=== PATIENT | male | born 1945 | race Caucasian/White ===

== ENCOUNTER 2017-04-27 21:11 | Inpatient (IN) | payer OTHER, MEDICARE ==
[~2017-04-27] VITALS: Ht 365.8 cm; Wt 85.7 kg
[~2017-04-27 21:11] MED LIST: ADVAIR 250-501 EACH; ALBUTEROL S5 MG/1 ML; ATORVASTATIN CA20 MG PO; COMBIVENT INH14.7 GM; HYDROCHLOROTHIA25 MG PO; PROTONIX40 MG/ML PO; SUCRALFATE1 G/10 ML NG; SYMBICORT INH
--- OUTSIDE RECORDS SUMMARY | 2017-04-27 21:14 | XMS REPORT ---
Author Author [facility] Address Unknown Phone Unavailable Care Team Providers Care Weaving Inspector Name Role Phone WILLIAM FERRARO Unavailable Unavailable Problems This patient has no known problems. Allergies, Adverse Reactions, Alerts This patient has no known allergies or adverse reactions. Medications This patient has no known medications. Results Test Description Test Time Test Comments Text Results Atomic Results Result Comments CT CHEST WO [place] [address] Patient Name: MARY ZAMAN MR #: [id number] : 1945 Age/Sex: 71/M Req #: [id number] Adm Physician: WILLIAM FERRARO MD Ordered by: REUBEN PUGA MD Report #: [id number] Location: ICU Room/Bed: ICU [facility] Procedure: [id number] CT/CT CHEST WO Exam Date: 12/19/16 Exam Time: 0955 REPORT STATUS: Signed EXAM: CT Chest WITHOUT contrast INDICATION: Cough and shortness of breath. COMPARISON: None TECHNIQUE: Chest was scanned utilizing a multidetector helical scanner from the lung apex through the level of the adrenal glands without administration of IV contrast. Absence of intravenous contrast decreases sensitivity for detection of lymphadenopathy and vascular pathology. Coronal and sagittal reformations were obtained. Routine protocol was performed. IV CONTRAST: None COMPLICATIONS: None RADIATION DOSE: Total DLP: 538.8 mGy*cm Estimated effective dose: (DLP x 0.014 x size factor) mSv CTDIvol has been reviewed. It is below the limits set by the Radiation Protocol Committee (RPC). FINDINGS: LINES/ TUBES: None. LUNGS AND AIRWAYS: Upper lobe predominant centrilobular and paraseptal emphysematous changes. No focal consolidation. Right lower lobe calcified granuloma. Nonspecific 2 mm left lower lobe groundglass nodule ( series 3, image 40). Few additional punctate left lower lobe nodules. Bibasilar small areas of linear atelectasis/scarring. Airways are normal. PLEURA: The pleural spaces are clear. Mild bilateral lower lobe, right more on left, pleural thickening/irregularity. HEART AND MEDIASTINUM: The thyroid gland is normal. No mediastinal, hilar or axillary lymphadenopathy. The heart is normal in size.. There is no pericardial effusion. Mild atherosclerotic calcification of coronary arteries. Aorta measures 3.6 cm at the level of right pulmonary artery. UPPER ABDOMEN: Splenic calcified granuloma. BONES: The visualized bony thorax is within normal limits. SOFT TISSUES: Unremarkable. IMPRESSION: 1. No evidence of pneumonia. 2. Centrilobular and paraseptal emphysematous changes. 3. Evidence of prior granulomatous disease. 4. Few tiny nonspecific lung nodules. Without risk factors, no follow-up is necessary. If the patient is high risk, follow-up with low-dose chest CT in one year is recommended. 5. Minimal pleural thickening/irregularity, especially in the lower lobes. Signed by: Dr. Lg Shaffer MD on 12/19/2016 12:10 PM Dictated By: LG SHAFFER MD 1210 Transcribed By: ROSALIND on 12/19/16 1210 COPY TO: REUBEN PUGA MD CHEST SINGLE (PORTABLE) [place] [address] Patient Name: MARY ZAMAN MR #: [id number] : 1945 Age/Sex: 71/M Req #: [id number] Adm Physician: WILLIAM FERRARO MD Ordered by: SARAH SMITH MD Report #: [id number] Location: ICU Room/Bed: ICU [facility] Procedure: [id number] DX/CHEST SINGLE (PORTABLE) Exam Date: Exam Time: REPORT STATUS: Signed EXAMINATION: CHEST SINGLE (PORTABLE) INDICATION: Dyspnea, screening COMPARISON: 05/18/2015 FINDINGS: TUBES and LINES: None. LUNGS: Lungs are well inflated. Right lower lobe lateral aspect airspace opacity. PLEURA: No pleural effusion or pneumothorax. HEART AND MEDIASTINUM: The cardiomediastinal silhouette is unremarkable. BONES AND SOFT TISSUES: No acute osseous lesion. Soft tissues are unremarkable. UPPER ABDOMEN: No free air under the diaphragm. IMPRESSION: Findings in the lateral right lung base are suspicious for developing pneumonia. Signed by: Dr. Onesimo Alcantara M.D. on 12/19/2016 5 :35 AM Dictated By: ONESIMO MAS MD 4 Transcribed By: ROSALIND on 12/19/16534 COPY TO: SARAH SMITH MD ECHO COMPLETE (ECHOCARDIOGRAM) [place] [address] Patient Name : MARY ZAMAN MR #: [id number] : 1945 Age/Sex: 71/M Adm Physician : WILLIAM FERRARO MD Admit Date : 12/17/16 Location : MED/SURG2 Room/Bed : [facility] REPORT: Cardiology Report DATE OF STUDY: December 17, 2016 ECHOCARDIOGRAM M-MODE: Normal chamber sizes. Left ventricular hypertrophy. Borderline left ventricular contractility. Normal mitral and aortic valves. No pericardial effusion. SECTOR SCAN: Suboptimal study with poor image quality. Normal chamber sizes. Left ventricular hypertrophy. Borderline contractility. Slight paradoxical wall motion. Ejection fraction 45% to 50%. Mitral, aortic and tricuspid valves are grossly normal. There is no pericardial effusion. CARDIAC DOPPLER STUDY WITH COLOR: No significant regurgitation or stenosis. CONCLUSIONS 1. Suboptimal study with poor image quality. 2. Left ventricular hypertrophy with ejection fraction in the range of 45% to 50%. 3. No significant tricuspid regurgitation to estimate pulmonary artery systolic pressure. 10: 43 Job#: [id number] Signature Date Dictated By: WILLIAM FERRARO MD Transcribed By: SMEDS on 12/18/16 <Electronically signed by WILLIAM FERRARO MD><<Signature on File>>12/26/16 1015 COPY TO: CHEST 2 VIEWS [place] [address] Patient Name: MARY ZAMAN MR #: [id number] : 1945 Age/Sex: 71/M Req #: [id number] Adm Physician: Ordered by: DIMAS BIRMINGHAM MD Report #: [id number] Location: ER Room/Bed: Procedure: [id number] DX/CHEST 2 VIEWS Exam Date: 12/17/16 Exam Time: 1309 REPORT STATUS: Signed PROCEDURE: Frontal and lateral views of the chest. COMPARISON: None. INDICATIONS: THROWING UP/SHORTNESS OF BREATH FINDINGS: Lines/tubes: None. Lungs: Bilateral hyperinflation. The There is no evidence of pneumonia or pulmonary edema. Pleura: There is no pleural effusion or pneumothorax. Heart and mediastinum: The heart and the mediastinum are normal. Bones: No acute bony abnormality. Mild wedging of midthoracic vertebral bodies. IMPRESSION: 1. Bilateral hyperinflation suggestive of COPD. Meg Luna M.D. Dictated by: Meg Luna M.D. on 12/17 at 13:53 Electronically approved by: Meg Luna M.D. on 12/17/2016 at 13:53 Dictated By: ALESSIO LUNA MD, MD 1353 Transcribed By : CATERINA on 12/17/16 1353 COPY TO: DIMAS BIRMINGHAM MD CT ABDOMEN/PELVIS W [place] [address] Patient Name: MARY ZAMAN MR #: [id number] : 1945 Age/Sex: 71/M Req # : [id number] Adm Physician: Ordered by: KORIN GUERRA DIRECTOR COLLEGE Report #: [id number] Location: ER Room/Bed: Procedure: [id number] CT/CT ABDOMEN/PELVIS W Exam Date: 12/17/16 Exam Time: 1309 REPORT STATUS: Signed EXAM: CT Abdomen and Pelvis WITH contrast INDICATION: Abdominal pain. Leukocytosis. Melena. COMPARISON: None. TECHNIQUE: Abdomen and pelvis were scanned utilizing a multidetector helical scanner from the lung base to the pubic symphysis after administration of IV contrast. Coronal and sagittal reformations were obtained. Routine protocol was performed. Scan was performed when during portal venous phase. IV CONTRAST: 100 cc Isovue-370. ORAL CONTRAST: 30 cc of Gastrografin diluted in 870 cc of water. RADIATION DOSE: Total DLP: 436.78 mGy*cm Estimated effective dose: (DLP x 0.015 x size factor) mSv COMPLICATIONS: None FINDINGS: LINES and TUBES: None. LOWER THORAX: Mild bibasilar dependent atelectasis. HEPATOBILIARY: No focal hepatic lesions. No biliary ductal dilation. GALLBLADDER: High attenuation material within the dependent gallbladder suggestive of calculi. No wall thickening. SPLEEN: No splenomegaly. PANCREAS: No focal masses or ductal dilatation. ADRENALS: No adrenal nodules KIDNEYS/URETERS: Kidneys enhance symmetrically. No hydronephrosis. 1.6 cm cyst partially exophytic of the lower pole of the left kidney on image 40 series 2. 4 mm low-attenuation lesion in the anterior cortex of the lower interpolar region of the right kidney on image 26 series 2 small to be characterized, however, most likely benign in etiology. 2 subcentimeter low-attenuation lesions in the interpolar region and upper pole of the left kidney on coronal image 71 are too small to be characterized, however, most likely cysts. No stones. GI TRACT: No abnormal distention, wall thickening, or evidence of bowel obstruction. Appendix is normal. Scattered colonic diverticula without CT evidence of diverticulitis. There is made of relatively haustral transverse and descending colon. PELVIC ORGANS/BLADDER: Unremarkable. LYMPH NODES: No lymphadenopathy. VESSELS: Tortuous abdominal aorta with atherosclerotic changes and mild focal ectasia just distal to the origin of the TAD, measuring 2.8 cm in transverse dimension on image 37 series 2. PERITONEUM / RETROPERITONEUM: No free air or fluid. BONES: Status post laminectomy and posterior fusion of L4-L5 with transpedicular screws system. Multilevel degenerative disc disease and spondylosis of the lumbar, and the lower thoracic spine. SOFT TISSUES: Unremarkable. IMPRESSION: 1. No acute abdominopelvic abnormality. 2. Sigmoid diverticulosis without acute diverticulitis. 3. Cholelithiasis. No biliary dilatation. Signed by: Dr. Meg Luna M.D. on 12/17/2016 2:39 PM Dictated By: ALESSIO LUNA MD, MD 1439 COPY TO: KORIN GUERRA NP
--- NOTE | 2017-04-27 22:29 | Diagnostic Imaging Report ---
EXAM: CHEST SINGLE (PORTABLE), AP 1 view ORDER DATE: 04/27/2017 9:46 PM Time stamp on exam: 2152 hours INDICATION: Chest pain, shortness of breath COMPARISON: None FINDINGS: LINES/TUBES: None LUNGS: No consolidations or edema. Calcified granuloma right lower lobe. Emphysematous changes. PLEURA: No effusions or pneumothorax. HEART AND MEDIASTINUM: Normal size and contour. BONES AND SOFT TISSUES: No acute findings. Ligamentous screws right humeral head. IMPRESSION: Emphysematous changes. No consolidations. Signed by: Dr. Cassidy Gonsalez M.D. on 04/27/2017 10:26 PM
[2017-04-27 23:03] LABS: BASOPHILS # (AUTO) 0.1 (0.0-0.1); BASOPHILS % 0.6 % (0.0-1.0); EOSINOPHILS # (AUTO) 0.3 (0.0-0.4); EOSINOPHILS % 2.8 % (0.0-6.0); HEMATOCRIT 39.7 % (38.2-49.6); LYMPHOCYTES # (AUTO) 1.2 (1.0-3.2); LYMPHOCYTES % 12.1 % (18.0-39.1); MEAN CORPUSCULAR HEMOGLOBIN 27.3 pg (28-32); MEAN CORPUSCULAR HGB CONC 32.7 g/dL (31-35); MEAN CORPUSCULAR VOLUME 83.4 fL (81-99); MONOCYTES # (AUTO) 1.3 (0.2-0.8); MONOCYTES % 13.8 % (4.4-11.3); NEUTROPHILS # (AUTO) 6.6 (2.1-6.9); NEUTROPHILS % 69.4 % (38.7-80.0); PLATELET COUNT 297 x10e3/uL (140-360); RED BLOOD COUNT 4.76 x10e6/uL (4.3-5.7); RED CELL DISTRIBUTION WIDTH 18.2 % (11.7-14.4)
[2017-04-27 23:15] LABS: INR 1.03; PARTIAL THROMBOPLASTIN TIME 28.9 seconds (23.8-35.5); PROTHROMBIN TIME 12.7 seconds (11.9-14.5)
[2017-04-27 23:24] LABS: ALANINE AMINOTRANSFERASE 13 IU/L (0-55); ALBUMIN 3.4 g/dL (3.5-5.0); ALBUMIN/GLOBULIN RATIO 0.9 (0.8-2.0); ALKALINE PHOSPHATASE 84 IU/L (40-150); ANION GAP 13.7 mmol/L (8-16); BLOOD UREA NITROGEN 22 mg/dL (7-26); BUN/CREATININE RATIO 22 (6-25); CALCIUM 9.5 mg/dL (8.4-10.2); CARBON DIOXIDE 28 mmol/L (22-29); CHLORIDE 104 mmol/L (98-107); CREATINE KINASE 177 IU/L (30-200); CREATININE, SERUM 1.02 mg/dL (0.72-1.25); EST GLOMERULAR FILTRATION RATE > 60 ML/MIN (60-); GLUCOSE 110 mg/dL (74-118); POTASSIUM 3.7 mmol/L (3.5-5.1); SODIUM 142 mmol/L (136-145)
[2017-04-27] MEDS ORDERED: NITROGLYCERIN 2% OINT 1 GM PKT TOP ONE (23:45)
[2017-04-27] MEDS ORDERED: ASPIRIN 81 MG CHEW TAB PO ONE (23:45)
[2017-04-28] VITALS (10 sets, daily range): BP systolic 102–130; BP diastolic 48–87
[2017-04-28] MEDS ORDERED: CLOPIDOGREL BISULFATE 75 MG TAB PO ONE
[2017-04-28] MEDS: NITROGLYCERIN 2% OINT 1 GM PKT TOP SCH ×4 (00:24→17:42)
[2017-04-28] MEDS: ALBUTEROL/IPRATROPIUM 3 ML NEB NEB PRN ×2 (02:45→07:38)
[2017-04-28 06:22] LABS: BASOPHILS # (AUTO) 0.1 (0.0-0.1); BASOPHILS % 0.6 % (0.0-1.0); EOSINOPHILS # (AUTO) 0.3 (0.0-0.4); EOSINOPHILS % 3.8 % (0.0-6.0); HEMATOCRIT 35.8 % (38.2-49.6); LYMPHOCYTES # (AUTO) 1.1 (1.0-3.2); MEAN CORPUSCULAR HEMOGLOBIN 27.7 pg (28-32); MEAN CORPUSCULAR HGB CONC 33.5 g/dL (31-35); MEAN CORPUSCULAR VOLUME 82.7 fL (81-99); MONOCYTES # (AUTO) 1.1 (0.2-0.8); MONOCYTES % 13.6 % (4.4-11.3); NEUTROPHILS # (AUTO) 5.2 (2.1-6.9); NEUTROPHILS % 66.7 % (38.7-80.0); PLATELET COUNT 270 x10e3/uL (140-360); RED BLOOD COUNT 4.33 x10e6/uL (4.3-5.7); RED CELL DISTRIBUTION WIDTH 17.9 % (11.7-14.4)
[2017-04-28 06:44] LABS: ALANINE AMINOTRANSFERASE 15 IU/L (0-55); ALBUMIN 3.1 g/dL (3.5-5.0); ALKALINE PHOSPHATASE 81 IU/L (40-150); ANION GAP 13.3 mmol/L (8-16); BLOOD UREA NITROGEN 19 mg/dL (7-26); BUN/CREATININE RATIO 23 (6-25); CALCIUM 9.1 mg/dL (8.4-10.2); CARBON DIOXIDE 27 mmol/L (22-29); CHLORIDE 105 mmol/L (98-107); CHOL/HDL RATIO 4.1 (3.9-4.7); CHOLESTEROL 140 MD/DL (0-199); CREATINE KINASE 365 IU/L (30-200); CREATININE, SERUM 0.82 mg/dL (0.72-1.25); EST GLOMERULAR FILTRATION RATE > 60 ML/MIN (60-); GLUCOSE 106 mg/dL (74-118); HDL CHOLESTEROL 34 MG/DL (40-60); LDL CHOLESTEROL 86 MG/DL (60-130); POTASSIUM 3.3 mmol/L (3.5-5.1); SODIUM 142 mmol/L (136-145); TRIGLYCERIDES 100 MG/DL (0-149)
[2017-04-28] MEDS ORDERED: LIDOCAINE HCL 2% LOCAL 20 ML VIAL PRN (08:52)
[2017-04-28] MEDS ORDERED: HEPARIN SOD/SOD CHLORIDE 2,000 ML PRN (08:53)
[2017-04-28] MEDS ORDERED: IOPAMIDOL 370 MG/ML 200 ML INFUS..BTL INJ PRN (08:53)
[2017-04-28] MEDS ORDERED: FENTANYL CITRATE/PF 100MCG/2 ML INJ PRN (08:55)
[2017-04-28] MEDS ORDERED: MIDAZOLAM HCL 2 MG/2 ML VIAL PRN (08:55)
[2017-04-28] MEDS ORDERED: CLOPIDOGREL BISULFATE 75 MG TAB PO SCH (09:00)
[2017-04-28] MEDS ORDERED: ASPIRIN 81 MG ENTERIC COATED PO SCH (09:00)
[2017-04-28] MEDS ORDERED: POTASSIUM CHLORIDE 20 MEQ TAB CR PO NR (09:30)
[2017-04-28] MEDS ORDERED: SODIUM CHLORIDE 0.9% 1000ML 1,000 ML PRN (09:56)
[2017-04-28] MEDS ORDERED: BIVALIRUDIN 250 MG/VIAL IV PRN (09:58)
[2017-04-28] MEDS ORDERED: SODIUM CHLORIDE 0.9% 50ML 50 ML PRN (09:59)
[2017-04-28] MEDS ORDERED: EPTIFIBATIDE 10 ML PRN (10:25)
[2017-04-28] MEDS ORDERED: CLOPIDOGREL BISULFATE 75 MG TAB PRN (10:31)
[2017-04-28] MEDS ORDERED: ASPIRIN 325 MG TAB PRN (10:31)
[2017-04-28] MEDS: FAMOTIDINE 20 MG TAB PO SCH ×3 (12:00→17:30)
[2017-04-28] MEDS ORDERED: METHYLPREDNISOLONE SOD SUCC 40 MG/ML VIAL IV ONE (14:45)
[2017-04-28 15:06] LABS: CREATINE KINASE MB 18.1 ng/mL (0-5.0)
--- NOTE | 2017-04-28 15:47 | Consultation ---
DATE OF CONSULTATION: April 28, 2017 PULMONARY/CRITICAL CARE CONSULTATION CHIEF COMPLAINT: COPD and recent myocardial infarction. HISTORY OF PRESENT ILLNESS: The patient is a 71-year-old man. He has a history of severe COPD. He uses Symbicort as well as Combivent at home. He was at his baseline up until 2 or 3 days ago when he developed chest pain. He came to the emergency department and was found to have acute CA. He required emergent catheterization with stent placement. He reports improvement in his chest pain and symptoms, but still has some dyspnea. PAST MEDICAL HISTORY: COPD, osteoarthritis, hyperlipidemia. PAST SURGICAL HISTORY: Status post catheterization with stent placement as noted above. History of chronic back problems. ALLERGIES: THERE ARE NO KNOWN DRUG ALLERGIES. SOCIAL HISTORY: The patient quit smoking. 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 FAMILY HISTORY: Noncontributory. ALLERGIES: NO KNOWN DRUG ALLERGIES. REVIEW OF SYSTEMS: The patient denies any fever or headache. He is not complaining of facial pain. He has no neck pain. He did have chest pain when he came in, but it has improved. He does have some dyspnea. There is no cough. He has no abdominal pain. There is no nausea or vomiting. There is no leg edema. PHYSICAL EXAMINATION: VITAL SIGNS: The patient is afebrile. The patient is 98% on 3 liters. The blood pressure is 109/69. HEENT: Examination shows no facial swelling or erythema. Nasal mucosa is normal. The oropharynx is normal. LYMPHATIC: Examination shows no submandibular, cervical or supraclavicular adenopathy. CARDIAC: Exam reveals a regular rate and rhythm with normal S1 and S2. There are no murmurs or rubs. LUNGS: Auscultation of the lungs reveals prolonged expiratory phase. There is no wheezing. ABDOMEN: Is soft and nontender. There is no rebound or guarding. EXTREMITIES: Shows no leg edema or calf tenderness. There is no cyanosis or clubbing. NEUROLOGIC: Exam shows no focal abnormalities. SKIN: Examination shows no rashes. LABORATORY DATA: The chemistries are significant for elevated troponin 4.9. The electrolytes are within normal limits. RADIOGRAPHIC DATA: The chest x-ray shows some emphysematous changes. There are no acute changes. IMPRESSION 1. Chronic obstructive pulmonary disease with acute exacerbation. 2. Acute myocardial infarction requiring stent placement. PLAN: 1. The patient will receive 1 dose of IV Solu-Medrol. 2. Will restart the Symbicort twice a day. 3. Patient will have nebulizer treatments as needed. 4. Continue cardiac management as per cardiology. Job#: [id number] GH
[2017-04-28] MEDS ORDERED: ONDANSETRON HCL INJ 2 MG/ML VIAL IV PRN ×2 (17:30)
[2017-04-28] MEDS ORDERED: SODIUM CHLORIDE FLUSH 10 ML SYR INJ PRN ×2 (17:30)
[2017-04-28] MEDS ORDERED: ALBUTEROL/IPRATROPIUM 3 ML NEB NEB PRN (17:30)
[2017-04-28] MEDS ORDERED: MORPHINE SULFATE 2 MG/ML SYR IV PRN ×2 (17:30)
--- NOTE | 2017-04-28 17:31 | Operative Report ---
DATE OF PROCEDURE: April 28, 2017 PROCEDURES PERFORMED: 1. Left heart catheterization. 2. Selective coronary angiogram. 3. Left ventriculogram. 4. Stent placement in the left anterior descending. INDICATIONS: [id number] NV. ANESTHESIA: 2% lidocaine for local anesthesia and fentanyl and Versed for conscious sedation. BLOOD LOSS: About 15 mL. DESCRIPTION OF PROCEDURE: After informed consent, patient was brought to the cardiac catheterization laboratory and placed on the table. Both groins were painted and draped in a sterile fashion. Lidocaine was injected into the right groin for local anesthesia. Right femoral artery was accessed by Seldinger technique, and a 5-Turkish sheath was placed in the right femoral artery. Left main artery was cannulated using a JL4, 5-Turkish catheter. Coronary angiogram was performed, and images were obtained in multiple views. The right coronary artery was cannulated using a 3DRC 5-Turkish catheter. Coronary angiogram was performed, and images were obtained in multiple views. LV-gram was performed using a pigtail catheter. After reviewing the images, it was decided to intervene on the 70% to 80% mid LAD lesion. The 5-Turkish sheath was exchanged for a 6-Turkish sheath over a guidewire. The left main was cannulated using an XB 3.5, 6-Turkish guide. A Prowater wire was manipulated and placed in the distal LAD. The lesion was dilated using a 2.5 x 8 mm Emerge balloon. The balloon was removed. The wire was sticky. So, the wire was removed, and a Hi-Torque floppy wire was manipulated and placed in the distal LAD. A 2.75 x 16 mm Synergy drug-eluting stent was advanced over the wire, and the lesion was dilated at 8 atmospheres for about 15 seconds. All this was performed under constant fluoroscopic guidance. Patient was given aspirin, Plavix, Angiomax and Integrilin bolus during the procedure. Patient tolerated this procedure without any complications. REPORT: LEFT MAIN: Normal caliber and has no significant stenosis. LEFT ANTERIOR DESCENDING: Is of normal caliber and had 70% to 80% mid lesion. There appears to be like a dual LAD system with a large ramus/diagonal branch running parallel to the LAD. LEFT CIRCUMFLEX: Normal caliber with luminal irregularities. RIGHT CORONARY ARTERY: Normal caliber with luminal irregularities. LV-GRAM: Preserved LV function. Overall ejection fraction is about 50%. HEMODYNAMICS: The aortic pressure is 120/50. LV pressure is 121/7. LVEDP is 13. BALLOON USED: A 2.5 x 8 mm Emerge. STENT USED: A 2.75 x 16 mm Synergy drug-eluting stent in the mid LAD. There was 0% residual stenosis. Job#: [id number] EV
[2017-04-28] MEDS ORDERED: BUDESONIDE/FORMOTEROL 160/4.5MCG INHALER INH SCH (19:00)
[2017-04-28] MEDS: BUDESONIDE/FORMOTEROL 160/4.5MCG INHALER INH SCH (21:00)
[2017-04-28 23:00] LABS: CREATINE KINASE MB 13.2 ng/mL (0-5.0)
[2017-04-29] VITALS (15 sets, daily range): BP systolic 86–134; BP diastolic 49–78
[2017-04-29] MEDS: NITROGLYCERIN 2% OINT 1 GM PKT TOP SCH ×4 (05:58→18:00)
[2017-04-29 06:08] LABS: BASOPHILS % 0.1 % (0.0-1.0); HEMATOCRIT 35.6 % (38.2-49.6); LYMPHOCYTES # (AUTO) 0.4 (1.0-3.2); LYMPHOCYTES % 4.8 % (18.0-39.1); MEAN CORPUSCULAR HEMOGLOBIN 27.5 pg (28-32); MEAN CORPUSCULAR HGB CONC 33.7 g/dL (31-35); MEAN CORPUSCULAR VOLUME 81.5 fL (81-99); MONOCYTES # (AUTO) 0.3 (0.2-0.8); MONOCYTES % 3.5 % (4.4-11.3); NEUTROPHILS # (AUTO) 7.9 (2.1-6.9); NEUTROPHILS % 90.9 % (38.7-80.0); PLATELET COUNT 267 x10e3/uL (140-360); RED BLOOD COUNT 4.37 x10e6/uL (4.3-5.7)
[2017-04-29 06:20] LABS: INR 1.21; PROTHROMBIN TIME 14.4 seconds (11.9-14.5)
[2017-04-29 06:28] LABS: ALANINE AMINOTRANSFERASE 17 IU/L (0-55); ALBUMIN/GLOBULIN RATIO 0.9 (0.8-2.0); ALKALINE PHOSPHATASE 78 IU/L (40-150); ANION GAP 13.8 mmol/L (8-16); BLOOD UREA NITROGEN 15 mg/dL (7-26); BUN/CREATININE RATIO 20 (6-25); CALCIUM 8.9 mg/dL (8.4-10.2); CARBON DIOXIDE 25 mmol/L (22-29); CHLORIDE 106 mmol/L (98-107); CREATININE, SERUM 0.75 mg/dL (0.72-1.25); EST GLOMERULAR FILTRATION RATE > 60 ML/MIN (60-); GLUCOSE 148 mg/dL (74-118); MAGNESIUM 1.8 MG/DL (1.3-2.1); POTASSIUM 3.8 mmol/L (3.5-5.1); SODIUM 141 mmol/L (136-145)
[2017-04-29] MEDS: FAMOTIDINE 20 MG TAB PO SCH ×2 (06:52→18:00)
[2017-04-29] MEDS: BUDESONIDE/FORMOTEROL 160/4.5MCG INHALER INH SCH ×2 (07:00→20:15)
[2017-04-29 07:53] LABS: PLATELET ESTIMATE ADEQUATE; PLATELET MORPHOLOGY COMMENT NORMAL; RBC MORPHOLOGY COMMENT NORMAL
[2017-04-29] MEDS: CLOPIDOGREL BISULFATE 75 MG TAB PO SCH (09:11)
[2017-04-29] MEDS: ASPIRIN 81 MG ENTERIC COATED PO SCH (09:11)
[2017-04-30] MEDS: NITROGLYCERIN 2% OINT 1 GM PKT TOP SCH ×3 (00:10→12:42)
[2017-04-30 05:16] VITALS: BP 93/56
[2017-04-30] MEDS: FAMOTIDINE 20 MG TAB PO SCH (06:10)
[2017-04-30 06:20] VITALS: BP 98/60
[2017-04-30 07:29] VITALS: BP 107/60
[2017-04-30 08:00] VITALS: BP 107/60
[2017-04-30] MEDS: ASPIRIN 81 MG ENTERIC COATED PO SCH (09:34)
[2017-04-30] MEDS: CLOPIDOGREL BISULFATE 75 MG TAB PO SCH (09:34)
[2017-04-30 11:18] VITALS: BP 117/76
[2017-04-30] MEDS ORDERED: PLAVIX75 MG PO (13:50)
== END 2017-04-30 14:24 | disposition home health service (06) | DRG 247 ==
LOC: ER 21:11 → ERHOLD 04-28 00:29 → UNDOADMIN 04-28 00:29 → ER 04-28 09:05 → CATH LAB 04-28 12:56 → IMCU 04-28 13:57
PROVIDERS: ADMIT Internal Medicine Critical Care Medicine; ATTEND Internal Medicine Critical Care Medicine
PROC: 027034Z Dilation of Coronary Artery, One Artery with Drug-eluting Intraluminal Device, Percutaneous Approach (ICD-10-PCS; principal; 2017-04-28)
PROC: 3E033PZ Introduction of Platelet Inhibitor into Peripheral Vein, Percutaneous Approach (ICD-10-PCS; 2017-04-28)
PROC: 4A023N7 Measurement of Cardiac Sampling and Pressure, Left Heart, Percutaneous Approach (ICD-10-PCS; 2017-04-28)
PROC: B2111ZZ Fluoroscopy of Multiple Coronary Arteries using Low Osmolar Contrast (ICD-10-PCS; 2017-04-28)
PROC: B2151ZZ Fluoroscopy of Left Heart using Low Osmolar Contrast (ICD-10-PCS; 2017-04-28)
DX: I21.4 Non-ST elevation (NSTEMI) myocardial infarction (principal); J44.1 Chronic obstructive pulmonary disease with (acute) exacerbation; K21.9 Gastro-esophageal reflux disease without esophagitis; I25.10 Atherosclerotic heart disease of native coronary artery without angina pectoris; E78.5 Hyperlipidemia, unspecified; E87.6 Hypokalemia; M19.90 Unspecified osteoarthritis, unspecified site; Z87.891 Personal history of nicotine dependence; Z79.02 Long term (current) use of antithrombotics/antiplatelets
CPT/HCPCS: 36140; 36415; 71045; 77002; 80053; 80061; 82550; 82553; 83735; 84484; 85025; 85610; 85730; 92920; 93005; 93306; 93452; 93458; 94640; 99284; C9600; J0583; J1327; J2001; J2250; J2270; J2405; J2920; J7030; Q9967

== ENCOUNTER 2017-05-29 01:52 | Emergency (ER) | payer OTHER, MEDICARE ==
[~2017-05-29] VITALS: Ht 365.8 cm; Wt 85.7 kg
[~2017-05-29 01:52] MED LIST changes: +PLAVIX75 MG PO
--- OUTSIDE RECORDS SUMMARY | 2017-05-29 01:55 | XMS REPORT | Continuity of Care Document ---
Author Author [facility] Organization 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 No 04/28/17 2:36pm If yes, is advance directive on file with [facility]? No 04/28/17 2:36pm If not on file with [facility] will patient provide a copy? No 04/28/17 2:36pm Do you have a Directive to Physician? No 04/27/17 9:10pm Do you have a Medical Power of Latin Professor? No 04/27/17 9:10pm Do you have an out of hospital Do Not Resuscitate Order? No 04/27/17 9:10pm Do you have any special needs we should be aware of? No 04/27/17 9:10pm Do you have a support person here with you today? Yes 04/27/17 9:10pm Did patient receive Notice of Privacy Practices? Yes 04/27/17 9:10pm Did patient receive patient rights and responsibilities? Yes 04/27/17 9:10pm Problems Medical Problem Onset Date Status Chest pain Unknown Elevated troponin Unknown Medications Current Home Medications Medication Dose Units Route Directions Days Qty Instructions Start Date Albuterol/Ipratropium (Combivent Inhaler) 14.7 Gm Aero Atorvastatin Calcium 20 Mg Tablet 20 Mg Oral Bedtime 30 Tab Clopidogrel Bisulfate (Plavix) 75 Mg Tablet 75 Mg Oral Daily 30 Tab Hydrochlorothiazide 25 Mg Tablet 25 Mg Oral Daily 30 Tab Pantoprazole Sod (Protonix) 40 Mg/Ml Susp 40 Mg Oral Twice Daily Before Meals 30 Days 12/23/16 Sucralfate 1 G/10 Ml Susp 1 G Ng Tube Before Meals And At Bedtime 30 Days 12/23/16 Symbicort Unknown Dose Inhalation Po Past Home Medications Medication Directions Ordered Status Albuterol Sulfate 5 Mg/1 Ml Solution, Discontinued Fluticasone/Salmeterol (Advair 250-50 Diskus) 1 Each Disk.w.dev, Discontinued Family History Relationship Condition Age at Onset Recorded Date/Time 19 Daughter Family history of asthma Not Recorded 12/17/2016 10:27pm 19 Daughter Family history of hemophilia Not Recorded 12/17/2016 10:26pm 32 Mother Family history of acute myocardial infarction Not Recorded 2016 10:23pm Social History Social History Problem Response Recorded Date/Time Onset Date Status Hx Psychiatric Problems No 04/28/2017 2:36pm Not Applicable Not Applicable Hx Eating Disorder No 04/28/2017 2:36pm Not Applicable Not Applicable Hx Substance Use Disorder No 04/28/2017 2:36pm Not Applicable Not Applicable Hx Depression No 04/28/2017 2:36pm Not Applicable Not Applicable Hx Alcohol Use Y - QUIT 29 YEARS AGO 04/28/2017 2:36pm Not Applicable Not Applicable Hx Substance Use Treatment No 04/28/2017 2:36pm Not Applicable Not Applicable Hx Physical Abuse No 04/28/2017 2:36pm Not Applicable Not Applicable Smoking Status Start Date Stop Date Former smoker Hospital Discharge Instructions No hospital discharge instruction information available. Plan of Care Discharge Date 04/30/17 2:24pm Disposition HOME, SELF-CARE Instructions/Education Provided Chest Pain - Chest Wall Prescriptions See Medication Section Additional Instructions/Education LOW SALT, LOW CHOLESTEROL DIET, NO HEAVY LIFTING OVER 10LBS. FOLLOW UP WITH YOUR PRIMARY DOCTOR IN ONE WEEK AND ALSO FOLLOW UP WITH DR RIGGS IN 1WEEK [phone] PRESCRIPION CALLED IN FOR PLAVIX 75MG ORAL DAILY Functional Status Query Response Date Recorded Assistive Devices None April 28, 2017 2:00pm Ambulation Ability Independent April 28, 2017 2:00pm Toileting Ability Independent April 28, 2017 2:00pm Allergies, Adverse Reactions, Alerts No known allergies. Immunizations No immunization information available. Vital Signs Acute Vital Signs Vital Response Date/Time Temperature (Fahrenheit) 98.4 degrees F (97.6 - 99.5) 04/30/2017 11:18am Pulse Pulse Rate (adult) 76 bpm (60 - 90) 04/30/2017 11:18am Respiratory Rate 20 bpm (12 - 24) 04/30/2017 11:18am Blood Pressure 117/76 mm Hg 04/30/2017 11:18am Height 12 ft 0 in 04/27/2017 9:37pm Weight 189 lb 04/27/2017 9:37pm Body Mass Index 6.4 kg/m^2 04/28/2017 2:36pm Results Laboratory Results Test Name Result Units Flags Reference Collection Date/Time Result Date/ Time Comments Differential Total Cells Counted 100 12/20/2016 6:43am 12/20/2016 9 :25am Neutrophils % (Manual) 93 % H 40-74 12/20/2016 6:43am 12/20/2016 9:25am Band Neutrophils % 2 % 12/20/2016 6:43am 12/20/2016 9:25am Lymphocytes % (Manual) 5 % L 19-48 12/20/2016 6:43am 12/20/2016 9:25am Monocytes % (Manual) 10 % H 3.4-9.0 12/18/2016 5:40am 12/18/2016 6:57am Metamyelocytes % 1 % H 0-0 12/18/2016 5:40am 12/18/2016 6:57am Myelocytes % 1 % H 0-0 12/18/2016 5:40am 12/18/2016 6:57am Hypochromasia SLIGHT 12/18/2016 5:40am 12/18/2016 6:57am Anisocytosis SLIGHT 12/18/2016 5:40am 12/18/2016 6:57am Tear Drop Cells FEW 12/18/2016 5:40am 12/18/2016 6:57am Urine Color YELLOW YELLOW 12/17/2016 2:30pm 12/17/2016 2:35pm Urine Clarity CLEAR CLEAR 12/17/2016 2:30pm 12/17/2016 2:35pm Urine Specific [place] 1.015 1.010-1.025 12/17/2016 2:30pm 2016 2:35pm Urine pH 5 5 - 7 12/17/2016 2:30pm 12/17/2016 2:35pm Urine Leukocyte Esterase NEGATIVE NEGATIVE 12/17/2016 2:30pm 2016 2:35pm Urine Nitrite NEGATIVE NEGATIVE 12/17/2016 2:30pm 12/17/2016 2:35pm Urine Protein NEGATIVE NEGATIVE 12/17/2016 2:30pm 12/17/2016 2:35pm Urine Glucose (UA) NEGATIVE NEGATIVE 12/17/2016 2:30pm 12/17/2016 2: 35pm Urine Ketones NEGATIVE NEGATIVE 12/17/2016 2:30pm 12/17/2016 2:35pm Urine Urobilinogen 0.2 mg/dL 0.2 - 1 12/17/2016 2:30pm 12/17/2016 2: 35pm Urine Bilirubin NEGATIVE NEGATIVE 12/17/2016 2:30pm 12/17/2016 2: 35pm Urine Blood NEGATIVE NEGATIVE 12/17/2016 2:30pm 12/17/2016 2:35pm Urine WBC 0-5 /HPF 0-5 12/17/2016 2:30pm 12/17/2016 2:54pm Urine RBC 0-5 /HPF 0-5 12/17/2016 2:30pm 12/17/2016 2:54pm Urine Bacteria NONE /HPF NONE 12/17/2016 2:30pm 12/17/2016 2:54pm Urine Epithelial Cells NONE /LPF NONE 12/17/2016 2:30pm 12/17/2016 2: 54pm Urine Mucus FEW H RARE 12/17/2016 2:30pm 12/17/2016 2:54pm Bedside Glucose 351 mg/dL H 70-120 12/21/2016 12:05am 12/21/2016 12: 15am Meter ID: [id number] Iron Level 78 ug/dL 65-175 12/18/2016 5:40am 12/18/2016 6:31am Total Iron Binding Capacity 288 ug/dL 261-478 12/18/2016 5:40am 2016 6:31am Percent Iron Saturation 27 % 15-50 12/18/2016 5:40am 12/18/2016 6:31am Transferrin 206 mg/dL 174-364 12/18/2016 5:40am 12/18/2016 6:31am Amylase Level 26 U/L 25-125 12/17/2016 10:17am 12/17/2016 10:59am Lipase 11 U/L 8-78 12/17/2016 10:17am 12/17/2016 10:59am Free Thyroxine Index 2.1595 1.4-3.8 12/17/2016 6:10pm 12/17/2016 8: 34pm Thyroxine (T4) 7.65 ug/dL 4.5-10.9 12/17/2016 6:10pm 12/17/2016 8:34pm Triiodothyronine (T3) Uptake 28.23 % 22.50-37.00 12/17/2016 6:10pm 7:40pm Thyroid Stimulating Hormone (TSH) 2.208 uIU/mL 0.350-4.940 12/17/2016 6: 10pm 12/17/2016 9:37pm Total Testosterone 305.5 ng/dL 264.0-916.0 12/17/2016 6:10pm 2016 4:33am This [facility] LC/MS-MS method is currently certified by the CDC Hormone Standardization Program (HoSt). Adult male reference interval is based on a population of healthy nonobese males (BMI <30) between 19 and 39 years old. Darrius et.al. JCEM 2017,102;3960-4855. PMID: 01763919. This test was developed and its performance characteristics determined by [facility]. It has not been cleared or approved by the Food and Drug Administration. Free Testosterone 3.5 pg/mL L 6.6-18.1 12/17/2016 6:10pm 12/23/2016 4: 33am Performed at: [address] [id number] Flash Designer: Jules Ramachandran MD, Phone: [phone] White Blood Count 8.67 x10e3/uL 4.8-10.8 04/29/2017 1:55am 04/29/2017 6 :09am Red Blood Count 4.37 x10e6/uL 4.3-5.7 04/29/2017 1:55am 04/29/2017 6: 09am Hemoglobin 12.0 g/dL L 14.0-18.0 04/29/2017 1:55am 04/29/2017 6:09am Hematocrit 35.6 % L 38.2-49.6 04/29/2017 1:55am 04/29/2017 6:09am Mean Corpuscular Volume 81.5 fL 81-99 04/29/2017 1:55am 04/29/2017 6: 09am Mean Corpuscular Hemoglobin 27.5 pg L 28-32 04/29/2017 1:55am 2017 6:09am Mean Corpuscular Hemoglobin Concent 33.7 g/dL 31-35 04/29/2017 1:55am 04/29/2017 6:09am Red Cell Distribution Width 18.0 % H 11.7-14.4 04/29/2017 1:55am 2017 6:09am Platelet Count 267 x10e3/uL 140-360 04/29/2017 1:55am 04/29/2017 6: 09am Neutrophils (%) (Auto) 90.9 % H 38.7-80.0 04/29/2017 1:55am 04/29/2017 6 :09am Lymphocytes (%) (Auto) 4.8 % L 18.0-39.1 04/29/2017 1:55am 04/29/2017 6: 09am Monocytes (%) (Auto) 3.5 % L 4.4-11.3 04/29/2017 1:55am 04/29/2017 6: 09am Eosinophils (%) (Auto) 0.0 % 0.0-6.0 04/29/2017 1:55am 04/29/2017 6: 09am Basophils (%) (Auto) 0.1 % 0.0-1.0 04/29/2017 1:5504/29/2017 6:09am IM GRANULOCYTES % 0.7 % 0.0-1.0 04/29/2017 1:5504/29/2017 6:09am Neutrophils # (Auto) 7.9 H 2.1-6.9 04/29/2017 1:5504/29/2017 6: 09am Lymphocytes # (Auto) 0.4 L 1.0-3.2 04/29/2017 1:5504/29/2017 6: 09am Monocytes # (Auto) 0.3 0.2-0.8 04/29/2017 1:55am 04/29/2017 6:09am Eosinophils # (Auto) 0.0 0.0-0.4 04/29/2017 1:5504/29/2017 6:09am Basophils # (Auto) 0.0 0.0-0.1 04/29/2017 1:5504/29/2017 6:09am Absolute Immature Granulocyte (auto 0.06 x10e3/uL 0-0.1 04/29/2017 1: 55am 04/29/2017 6:09am Platelet Estimate ADEQUATE 04/29/2017 1:55am 04/29/2017 7:53am Platelet Morphology Comment NORMAL 04/29/2017 1:55am 04/29/2017 7: 53am Red Cell Morphology Comment NORMAL 04/29/2017 1:55am 04/29/2017 7: 53am Prothrombin Time 14.4 seconds 11.9-14.5 04/29/2017 5:50am 04/29/2017 6: 21am Prothromb Time International Ratio 1.21 04/29/2017 5:50am 2017 6:21am Oral Anticoagulant Therapy INR Values: 1. Low Intensity Therapy 1.5 - 2.0 2. Moderate Intensity Therapy 2.0 - 3.0 3. High Intensity Therapy(1) 2.5 - 3.5 4. High Intensity Therapy(2) 3.0 - 4.0 5. Panic Value INR > 5.0 Activated Partial Thromboplast Time 28.9 seconds 23.8-35.5 04/27/2017 10 :50pm 04/27/2017 11:18pm Sodium Level 141 mmol/L 136-145 04/29/2017 5:50am 04/29/2017 6:30am Potassium Level 3.8 mmol/L 3.5-5.1 04/29/2017 5:50am 04/29/2017 6:30am Chloride Level 106 mmol/L 98-107 04/29/2017 5:50am 04/29/2017 6:30am Carbon Dioxide Level 25 mmol/L -04/29/2017 5:50am 04/29/2017 6: 30am Anion Gap 13.8 mmol/L 8-04/29/2017 5:50am 04/29/2017 6:30am Blood Urea Nitrogen 15 mg/dL 09-2404/29/2017 5:50am 04/29/2017 6:30am Creatinine 0.75 mg/dL 0.72-1.25 04/29/2017 5:50am 04/29/2017 6:30am BUN/Creatinine Ratio 20 6-04/29/2017 5:50am 04/29/2017 6:30am Estimat Glomerular Filtration Rate > 60 ML/MIN 6004/29/2017 5:50am 6:30am Ranges were taken from the National Kidney Disease Education Program and the National Kidney Foundation literature. Reference ranges: 60 or greater: Normal 16-59 (for 3 consecutive months): Chronic kidney disease 15 or less: Kidney failure Glucose Level 148 mg/dL H 74-118 04/29/2017 5:50am 04/29/2017 6:30am Calcium Level 8.9 mg/dL 8.4-10.2 04/29/2017 5:50am 04/29/2017 6:30am Magnesium Level 1.8 MG/DL 1.3-2.1 04/29/2017 5:50am 04/29/2017 6:30am Total Bilirubin 0.5 mg/dL 0.2-1.2 04/29/2017 5:50am 04/29/2017 6:30am Aspartate Amino Transf (AST/SGOT) 40 IU/L H 5-34 04/29/2017 5:50am 04/29 6:30am Alanine Aminotransferase (ALT/SGPT) 17 IU/L 0-55 04/29/2017 5:50am 6:30am Total Protein 6.3 g/dL L 6.5-8.1 04/29/2017 5:50am 04/29/2017 6:30am Albumin 3.0 g/dL L 3.5-5.0 04/29/2017 5:50am 04/29/2017 6:30am Globulin 3.3 g/dL 2.3-3.5 04/29/2017 5:50am 04/29/2017 6:30am Albumin/Globulin Ratio 0.9 0.8-2.0 04/29/2017 5:50am 04/29/2017 6: 30am Alkaline Phosphatase 78 IU/L 40-150 04/29/2017 5:50am 04/29/2017 6: 30am Triglycerides Level 100 MG/DL 0-149 04/28/2017 6:00am 04/28/2017 6: 47am Cholesterol Level 140 MD/DL 0-199 04/28/2017 6:00am 04/28/2017 6:47am Less than 200 mg/dL Low Risk 201 - 239 mg/dL Borderline Risk 240 mg/dl and greater High Risk LDL Cholesterol 86 MG/DL 60-130 04/28/2017 6:00am 04/28/2017 6:47am HDL Cholesterol 34 MG/DL L 40-60 04/28/2017 6:00am 04/28/2017 6:47am Cholesterol/HDL Ratio 4.1 3.9-4.7 04/28/2017 6:00am 04/28/2017 6: 47am Creatine Kinase 369 IU/L H 30-200 04/28/2017 10:05pm 04/28/2017 11:04pm Creatine Kinase MB 13.20 ng/mL H 0-5.0 04/28/2017 10:05pm 04/28/2017 11: 04pm Troponin I 3.962 ng/mL H 0-0.300 04/28/2017 10:05pm 04/28/2017 11:04pm Elevated result called to RILEY SCOTT RN at 2303 on 04/28/17 by Andrez Grider. Procedures Procedure Status Date Provider(s) EXCISION OF STOMACH, PYLORUS, ENDO, DIAGN Completed 12/18/16 CARLOS EDUARDO PEREZ MD EXCISION OF UPPER ESOPHAGUS, ENDO, DIAGN Completed 12/18/16 CARLOS EDUARDO PEREZ MD Computed tomography of abdomen and pelvis with contrast Active 12/17/16 KORIN GUERRA FASHION ILLUSTRATOR X-ray of chest, two views Active 12/17/16 DIMAS BIRMINGHAM MD Computed tomography of chest without contrast Active 12/19/16 REUBEN PUGA MD Encounters Encounter Location Arrival/Admit Date Discharge/Depart Date Attending Provider Discharged Inpatient [facility] 04/28/17 1:57pm 04/30/17 2:24pm REUBEN PUGA MD Discharged Inpatient [facility] 12/17/16 3:25pm 12/23/16 11:17am WILLIAM FERRARO MD
[2017-05-29] MEDS ORDERED: IPRATROPIUM BROMIDE 0.02% 2.5 ML NEB NEB ONE (02:00)
[2017-05-29] MEDS ORDERED: ALBUTEROL SULF 0.083% NEB SOLN 3 ML NEB NEB STA (02:00)
[2017-05-29] MEDS ORDERED: METHYLPREDNISOLONE SOD SUCC 125 MG/2ML VIAL IV ONE (02:00)
[2017-05-29] MEDS ORDERED: METHYLPREDNISOLONE SOD SUCC 125 MG/2ML VIAL ONE (02:05)
[2017-05-29 02:27] LABS: BASOPHILS # (AUTO) 0.1 (0.0-0.1); BASOPHILS % 0.8 % (0.0-1.0); EOSINOPHILS # (AUTO) 0.4 (0.0-0.4); EOSINOPHILS % 5.9 % (0.0-6.0); HEMATOCRIT 39.2 % (38.2-49.6); HEMOGLOBIN 12.8 g/dL (14.0-18.0); LYMPHOCYTES # (AUTO) 1.4 (1.0-3.2); LYMPHOCYTES % 18.8 % (18.0-39.1); MEAN CORPUSCULAR HEMOGLOBIN 28.8 pg (28-32); MEAN CORPUSCULAR HGB CONC 32.7 g/dL (31-35); MEAN CORPUSCULAR VOLUME 88.3 fL (81-99); MONOCYTES # (AUTO) 1.1 (0.2-0.8); MONOCYTES % 14.6 % (4.4-11.3); NEUTROPHILS # (AUTO) 4.4 (2.1-6.9); NEUTROPHILS % 59.2 % (38.7-80.0); PLATELET COUNT 278 x10e3/uL (140-360); RED BLOOD COUNT 4.44 x10e6/uL (4.3-5.7); RED CELL DISTRIBUTION WIDTH 19.9 % (11.7-14.4)
[2017-05-29 02:32] LABS: INR 1.06; PARTIAL THROMBOPLASTIN TIME 27.7 seconds (23.8-35.5)
[2017-05-29 02:48] LABS: ALANINE AMINOTRANSFERASE 14 IU/L (0-55); ALBUMIN 3.6 g/dL (3.5-5.0); ALBUMIN/GLOBULIN RATIO 1.1 (0.8-2.0); ALKALINE PHOSPHATASE 84 IU/L (40-150); ANION GAP 10.9 mmol/L (8-16); BLOOD UREA NITROGEN 14 mg/dL (7-26); BUN/CREATININE RATIO 13 (6-25); CALCIUM 9.3 mg/dL (8.4-10.2); CARBON DIOXIDE 31 mmol/L (22-29); CHLORIDE 105 mmol/L (98-107); CREATINE KINASE 97 IU/L (30-200); CREATININE, SERUM 1.04 mg/dL (0.72-1.25); EST GLOMERULAR FILTRATION RATE > 60 ML/MIN (60-); GLUCOSE 111 mg/dL (74-118); POTASSIUM 3.9 mmol/L (3.5-5.1); SODIUM 143 mmol/L (136-145)
--- NOTE | 2017-05-29 02:59 | Diagnostic Imaging Report ---
CHEST SINGLE (PORTABLE), 05/29/2017 2:00 AM Technique: CHEST SINGLE (PORTABLE) Comparison: 04/27/2017 Clinical history: Shortness of breath Findings: Stable appearance of the heart, mediastinum, lungs and pleural spaces. Underlying emphysema with right lower lobe calcified granuloma. Impression: Emphysema without consolidation. Signed by: Dr Beatriz Oliver MD on 05/29/2017 2:55 AM
[2017-05-29] MEDS ORDERED: PLAVIX75 MG PO (03:13)
[2017-05-29] MEDS ORDERED: METOPROLOL TART25 MG PO (03:13)
[2017-05-29] MEDS ORDERED: COMBIVENT RESPIM4 GM IH (03:14)
[2017-05-29] MEDS ORDERED: PROAIR HFA INH8.5 GM INH (03:14)
[2017-05-29] MEDS ORDERED: ASPIRIN 81 MG CHEW TAB PO ONE (03:30)
[2017-05-29] MEDS ORDERED: AZITHROMYCIN 250 MG TAB PO SCH (03:30)
[2017-05-29] MEDS ORDERED: ACETAMINOPHEN 325 MG TAB ONE (03:58)
[2017-05-29] MEDS ORDERED: ACETAMINOPHEN 325 MG TAB PO ONE (04:00)
[2017-05-29] MEDS: ALBUTEROL/IPRATROPIUM 3 ML NEB NEB SCH ×2 (06:35→11:18)
[2017-05-29] MEDS: METHYLPREDNISOLONE SOD SUCC 40 MG/ML VIAL IV SCH ×2 (08:14→14:12)
[2017-05-29] MEDS ORDERED: CLOPIDOGREL BISULFATE 75 MG TAB PO SCH (09:00)
[2017-05-29] MEDS ORDERED: METOPROLOL TARTRATE 25 MG TAB PO SCH (09:00)
[2017-05-29 10:49] LABS: CREATINE KINASE MB 2.6 ng/mL (0-5.0)
[2017-05-29] MEDS ORDERED: ALBUTEROL SULFATE HFA 8GM INHALATION AEROSOL INH PRN (14:30)
--- NOTE | 2017-05-29 15:19 | Consultation ---
DATE OF CONSULTATION: May 29, 2017 PULMONARY/CRITICAL CARE CONSULTATION CHIEF COMPLAINT: Is worsening dyspnea and congestion. HISTORY OF PRESENT ILLNESS: The patient is a 71-year-old man with a history of severe COPD. He required hospitalization in the fall of 2017 for GI bleeding and anemia. He required hospitalization about 6 weeks ago for a myocardial infarction and an emergent stent. He is on Symbicort twice a day at home as well as oxygen and bronchodilators. He noticed worsening congestion and increased phlegm production. He noted dyspnea and difficulty breathing. He came to the emergency department. He received some Solu-Medrol and bronchodilators. He was initially scheduled to be admitted but feels much better now. PAST SURGICAL HISTORY: Status post recent stent placement. PAST MEDICAL HISTORY: 1. COPD. 2. Chronic back problems. ALLERGIES: THERE ARE NO KNOWN DRUG ALLERGIES. FAMILY HISTORY: Family history is noncontributory. SOCIAL HISTORY: The patient is not a drinker. He was a former smoker. He does have a history of some asbestos exposure from working as a [employer]. REVIEW OF SYSTEMS: He does not note fever or headache. He is not complaining of sore throat or neck pain. He does not have chest pain. He did have some dyspnea. He did have phlegm production and cough. He denies any abdominal pain. There is no nausea or vomiting. There is no leg edema or calf tenderness. He has no focal neurological complaints. PHYSICAL EXAMINATION: VITAL SIGNS: The patient is afebrile. The blood pressure is 133/73, and the O2 saturation is 98% on 2 liters. HEENT: Examination shows no facial swelling or erythema. The nasal mucosa is normal. The oropharynx is normal. LYMPHATIC: Examination shows no submandibular, cervical or supraclavicular adenopathy. CARDIAC: Exam reveals a regular rate and rhythm with a normal S1 and S2. There are no murmurs or rubs. LUNGS: Auscultation reveals clear breath sounds bilaterally. There is no wheezing. ABDOMEN: Soft, nontender. There is no rebound or guarding. EXTREMITIES: Examination shows no leg edema or calf tenderness. There is no cyanosis or clubbing. NEUROLOGIC: Exam shows no focal abnormalities. LABORATORY DATA: The CBC is normal. The BNP is within normal limits. Troponin I is normal. RADIOGRAPHIC DATA: The chest x-ray shows no active disease. IMPRESSIONS: 1. Chronic obstructive pulmonary disease with acute exacerbation. 2. History of a myocardial infarction in April of 2017 requiring stent placement. 3. History of anemia secondary to gastrointestinal bleeding. PLAN: 1. The patient will be discharged home. 2. Will continue Symbicort along with the rescue inhalers and nebulizers as needed. 3. I have given him a prescription for prednisone 20 mg twice a day for 5 days to be used in the event of an emergency. 4. He also received a prescription for Omnicef twice a day. 5. He will follow up with me in 10 days. Job#: [id number] EV
[2017-05-29] MEDS ORDERED: NON-FORMULARY MEDICATION (Ipratropium/Albuterol Sulfate (Combivent Respimat Inhal Spray) 4 IH SCH (17:00)
[2017-05-29] MEDS ORDERED: IPRATROPIUM/ALBUTEROL SULFATE 4 GM INH INH SCH (19:00)
[2017-05-29] MEDS ORDERED: METHYLPREDNISOLONE SOD SUCC 40 MG/ML VIAL IV SCH (21:00)
== END 2017-05-29 14:31 | disposition home or self-care (01) ==
LOC: ER 01:52 → UNDOADMOB 03:20 → ERHOLD 03:20
DX: R06.00 Dyspnea, unspecified (principal); J44.1 Chronic obstructive pulmonary disease with (acute) exacerbation; I10 Essential (primary) hypertension; I25.10 Atherosclerotic heart disease of native coronary artery without angina pectoris; E78.5 Hyperlipidemia, unspecified; I25.2 Old myocardial infarction
CPT/HCPCS: 36415; 71045; 80053; 82550; 82553; 83880; 84484; 85025; 85610; 85730; 93005; 94640 ×2; 99284; J2920; J2930

== ENCOUNTER → 2018-09-20 | Day surgery (SDC) | payer OTHER ==
[2018-09-16 16:40] LABS: BASOPHILS % 0.5 % (0.0-1.0); EOSINOPHILS # (AUTO) 0.1 (0.0-0.4); EOSINOPHILS % 1.3 % (0.0-6.0); HEMATOCRIT 41.3 % (38.2-49.6); HEMOGLOBIN 13.4 g/dL (14.0-18.0); LYMPHOCYTES # (AUTO) 0.5 (1.0-3.2); LYMPHOCYTES % 5.6 % (18.0-39.1); MEAN CORPUSCULAR HGB CONC 32.4 g/dL (31-35); MEAN CORPUSCULAR VOLUME 95.6 fL (81-99); MONOCYTES # (AUTO) 0.4 (0.2-0.8); MONOCYTES % 4.9 % (4.4-11.3); NEUTROPHILS # (AUTO) 7.4 (2.1-6.9); NEUTROPHILS % 86.9 % (38.7-80.0); PLATELET COUNT 264 x10e3/uL (140-360); RED BLOOD COUNT 4.32 x10e6/uL (4.3-5.7); RED CELL DISTRIBUTION WIDTH 14.7 % (11.7-14.4)
[~2018-09-20] MED LIST changes: +COMBIVENT RESPIM4 GM IH; +DEXAMETHASONE SOD PHOS INJ 4 MG/ML VIAL ONE; +EPINEPHRINE HCL 1:1000 1ML 1 MG/ML AMP ONE; +FENTANYL CITRATE/PF 100MCG/2 ML INJ ONE; +LIDOCAINE HCL 2% 30 ML TUBE ONE; +LIDOCAINE HCL 2% LOCAL INJ 5 ML SDV VIAL INJ ONE; +LIDOCAINE HCL 4% 50 ML BTL ONE; +METOPROLOL TART25 MG PO; +MIDAZOLAM HCL 2 MG/2 ML VIAL ONE; +OXYMETAZOLINE HCL 0.05% NAS 1 SPRAY BTL ONE; +PROAIR HFA INH8.5 GM INH; +PROPOFOL IV EMULSION 10 MG/ML 20 ML VIAL ONE; +SPIRIVA18 MCG INH; +SYMBICORT 16010.2 GM INH
--- NOTE | 2018-09-20 07:10 | NUR ---
SPIRITUAL CARE - Pre-Surgery Assessment: Pt in bed. Pt's daughter at bedside. Pt reported supportive attention from family and friends. Intervention: I provided pastoral presence, hospitality, and sympathetic listening. I acquainted pt with availability of share holder while hospitalized. Outcome: Pt expressed appreciation for visit. No need for follow up indicated at this time. HERMILO Lujanlain Spiritual Care Department O: [phone] Pager: [phone] ([phone] number calling from)
[2018-09-20 09:30] VITALS: BP 139/71
--- NOTE | 2018-09-20 11:35 | Operative Report ---
DATE OF PROCEDURE: SURGEON: Ascencion Rachel MD PROCEDURES: Bronchoscopy with bronchoalveolar lavage. PREOPERATIVE DIAGNOSES: Chronic obstructive pulmonary disease with acute bronchitis. POSTOPERATIVE DIAGNOSES: Chronic obstructive pulmonary disease with acute bronchitis. CONSENT: Consent was obtained from the patient. ANESTHESIA: The Anesthesia Service used a laryngeal mask airway and provided MAC sedation. PROCEDURE IN DETAIL: The patient was placed in the supine position. The bronchoscope was advanced through the LMA. The glottis appeared normal. The scope was then advanced into the trachea. The tracheal mucosa was normal. The pierre was normal. The left tracheobronchial tree was examined. The left upper lobe and lingula were normal to the subsegmental level. There were no endobronchial lesions. The left lower lobe was normal to the subsegmental level. There were no endobronchial lesions. The scope was then repositioned into the right tracheobronchial tree. The right upper lobe was normal. There were no endobronchial lesions. Right middle lobe was normal with no endobronchial lesions and the right lower lobe was normal with no endobronchial lesions. The scope was wedged into the lateral basilar subsegment of the right lower lobe. A bronchoalveolar lavage was performed. COMPLICATIONS: None. ESTIMATED BLOOD LOSS: None. Ascencion Rachel MD [facility]/MODL /[id number]
[2018-09-20 13:05] LABS: BODY FLUID APPEARANCE SL.CLOUDY; BODY FLUID COLOR COLORLESS; BODY FLUID TYPE SEE COMMENTS
[2018-09-20 13:06] LABS: RBC,BODY FLUID 290 cells/uL; WBC,BODY FLUID 83 cells/uL
[2018-09-20 13:56] LABS: LYMPHOCYTES,BODY FLUID 97 %; NEUTROPHILS,BODY FLUID 3 %
[2018-09-20 14:34] LABS: MONO/MACROPHG,BODY FLUID 0 %
== END | disposition home or self-care (01) ==
LOC: ENDO 06:00
PROVIDERS: ATTEND Internal Medicine Critical Care Medicine
DX: J44.0 Chronic obstructive pulmonary disease with (acute) lower respiratory infection (principal); J20.9 Acute bronchitis, unspecified; Z87.01 Personal history of pneumonia (recurrent); J31.1 Chronic nasopharyngitis; Z96.652 Presence of left artificial knee joint; I25.10 Atherosclerotic heart disease of native coronary artery without angina pectoris; I25.2 Old myocardial infarction; K21.9 Gastro-esophageal reflux disease without esophagitis; I50.9 Heart failure, unspecified; I11.0 Hypertensive heart disease with heart failure
CPT/HCPCS: 31624; 36415 ×2; 85025; 87102; 87116; 87186; 87205; 87206 ×2; 87335; 89051; 93005; J1100; J2001; J2250; J2704; J3010; 31623; J0171

== ENCOUNTER 2019-11-17 12:48 | Inpatient (IN) | payer MEDICARE, OTHER ==
[~2019-11-17] VITALS: Ht 182.9 cm; Wt 79.5 kg
[~2019-11-17 12:48] MED LIST changes: -DEXAMETHASONE SOD PHOS INJ 4 MG/ML VIAL ONE; -EPINEPHRINE HCL 1:1000 1ML 1 MG/ML AMP ONE; -FENTANYL CITRATE/PF 100MCG/2 ML INJ ONE; -LIDOCAINE HCL 2% 30 ML TUBE ONE; -LIDOCAINE HCL 2% LOCAL INJ 5 ML SDV VIAL INJ ONE; -LIDOCAINE HCL 4% 50 ML BTL ONE; -MIDAZOLAM HCL 2 MG/2 ML VIAL ONE; -OXYMETAZOLINE HCL 0.05% NAS 1 SPRAY BTL ONE; -PROPOFOL IV EMULSION 10 MG/ML 20 ML VIAL ONE
[2019-11-17] MEDS ORDERED: ASPIRIN 81 MG CHEW TAB PO ONE (13:45)
[2019-11-17 14:35] LABS: BASOPHILS # (AUTO) 0.1 (0.0-0.1); BASOPHILS % 0.7 % (0.0-1.0); EOSINOPHILS # (AUTO) 0.2 (0.0-0.4); EOSINOPHILS % 3.2 % (0.0-6.0); HEMATOCRIT 44.3 % (38.2-49.6); HEMOGLOBIN 13.6 g/dL (14.0-18.0); LYMPHOCYTES # (AUTO) 0.8 (1.0-3.2); LYMPHOCYTES % 10.3 % (18.0-39.1); MEAN CORPUSCULAR HEMOGLOBIN 29.4 pg (28-32); MEAN CORPUSCULAR HGB CONC 30.7 g/dL (31-35); MEAN CORPUSCULAR VOLUME 95.7 fL (81-99); MONOCYTES % 13.2 % (4.4-11.3); NEUTROPHILS # (AUTO) 5.5 (2.1-6.9); NEUTROPHILS % 72.2 % (38.7-80.0); PLATELET COUNT 221 x10e3/uL (140-360); RED BLOOD COUNT 4.63 x10e6/uL (4.3-5.7); RED CELL DISTRIBUTION WIDTH 14.4 % (11.7-14.4)
[2019-11-17 14:54] LABS: ALANINE AMINOTRANSFERASE 11 IU/L (0-55); ALBUMIN 4.3 g/dL (3.5-5.0); ALBUMIN/GLOBULIN RATIO 1.5 (0.8-2.0); ALKALINE PHOSPHATASE 87 IU/L (40-150); ANION GAP 14.6 mmol/L (8-16); BLOOD UREA NITROGEN 9 mg/dL (7-26); BUN/CREATININE RATIO 12 (6-25); CALCIUM 9.3 mg/dL (8.4-10.2); CARBON DIOXIDE 33 mmol/L (22-29); CHLORIDE 97 mmol/L (98-107); CREATINE KINASE 57 IU/L (30-200); CREATININE, SERUM 0.77 mg/dL (0.72-1.25); EST GLOMERULAR FILTRATION RATE > 60 ML/MIN (60-); GLUCOSE 97 mg/dL (74-118); POTASSIUM 4.6 mmol/L (3.5-5.1); SODIUM 140 mmol/L (136-145)
[2019-11-17] MEDS ORDERED: ALBUTEROL SULFATE HFA 8GM INHALATION AEROSOL INH PRN (15:00)
--- NOTE | 2019-11-17 15:15 | Diagnostic Imaging Report ---
EXAMINATION: CHEST SINGLE (PORTABLE) INDICATION: Shortness of breath COMPARISON: Chest radiograph 05/29/2017 FINDINGS: LINES/TUBES:None LUNGS:The lungs are hyperinflated. No focal consolidation or pulmonary edema. PLEURA:No pleural effusion or pneumothorax. MEDIASTINUM:The cardiomediastinal silhouette appears normal in size and shape. BONES/SOFT TISSUES:No acute osseous injury. ABDOMEN:No free air under the diaphragm. IMPRESSION: Hyperinflated lungs. No focal pneumonia or pulmonary edema. Signed by: Freida Busch MD on 11/17/2019 3:12 PM
--- NOTE | 2019-11-17 15:27 | Emergency Department Note ---
History of Present Illnes History of Present Illness Chief Complaint: Respiratory History of Present Illness This is a 74 year old male . Chief Complaint Comment PATIENT IN FROM HOME WITH COMPLAINTS OF SHORTNESS OF BREATH/COPD EXACERBATION X 1 WEEK; STATES IS ON HOME O2, BUT HAS NOT BEEN ABLE TO CATCH HIS BREATH. PATIENT O2 SATS INITIALLY 66% ON HOME O2. PATIENT PLACED ON 6 L/MIN NASAL CANNULA AND O2 SATS INCREASED TO 93% AND SHORTNESS OF BREATH IMPROVED Historian: Patient, Family Member Arrival Mode: Car Onset (how long ago): day(s) Radiation: Reports non-radiation Severity: mild Duration (how long): day(s) Timing of current episode: constant Progression: worsening Chronicity: chronic Relieving factors: none Exacerbating factors: none Treatments prior to arrival: none Past Medical/Family History Physician Review I have reviewed the patient's past medical and family history. Any updates have been documented here. Past Medical History Recent Fever: No Clinical Suspicion of Infectio: No New/Unexplained Change in Ment: No Other Medical History: BACK PROBLEMS Pyloric channel ulcer with upper gastrointestinal bleeding, stabilized. Hyperlipidemia. Cardiomyopathy. Ejection fraction of 45% to 50%, possible alcohol in origin. istory of heavy alcohol use. History of edema, treated with hydrochlorothiazide. Other Surgery: LUMBER FUSION, LEFT KNEE REPLACEMENT, HERNIA REPAIR, Back sx, Elbow sx, Ankle sx, RCRx2, CTRx2 CARDIAC STENT Social History Physically hurt or threatened: No Other Last Tetanus: UNSURE Review of Systems Review of Systems Constitutional: Reports no symptoms EENTM: Reports no symptoms Cardiovascular: Reports no symptoms Respiratory: Reports as per HPI, Reports dyspnea Gastrointestinal: Reports no symptoms Genitourinary: Reports no symptoms Musculoskeletal: Reports no symptoms Integumentary: Reports no symptoms Neurological: Reports no symptoms Psychological: Reports no symptoms Endocrine: Reports no symptoms Hematological/Lymphatic: Reports no symptoms Physical Exam Related Data Allergies: Coded Allergies: No Known Allergies (Unverified , 05/18/15) Triage Vital Signs Vital Signs Date Time Temp Pulse Resp B/P (MAP) Pulse Ox O2 Delivery O2 Flow Rate FiO2 11/17/19 12:48 97.6 85 32 173/91 93 Nasal Cannula 6.0 Vital signs reviewed: Yes Physical Exam CONSTITUTIONAL Constitutional: Present well-developed, Present well-nourished HENT HENT: Present normocephalic, Present atraumatic, Present oropharynx clear/moist, Present nose normal HENT L/R: Present left ext ear normal, Present right ext ear normal EYES Eyes: Reports PERRL, Reports conjunctivae normal NECK Neck: Present ROM normal PULMONARY Pulmonary: Present effort normal, Present respiratory distress CARDIOVASCULAR Cardiovascular: Present regular rhythm, Present heart sounds normal, Present capillary refill normal, Present normal rate GASTROINTESTINAL Abdominal: Present soft, Present nontender, Present bowel sounds normal GENITOURINARY Genitourinary: Present exam deferred SKIN Skin: Present warm, Present dry MUSCULOSKELETAL Musculoskeletal: Present ROM normal NEUROLOGICAL Neurological: Present alert, Present oriented x 3, Present no gross motor or sensory deficits PSYCHOLOGICAL Psychological: Present mood/affect normal, Present judgement normal Results Laboratory Result Diagram: 11/17/19 1410 11/17/19 1410 Laboratory Laboratory Tests Test 11/17/19 14:10 White Blood Count 7.56 x10e3/uL (4.8-10.8) Red Blood Count 4.63 x10e6/uL (4.3-5.7) Hemoglobin 13.6 g/dL (14.0-18.0) Hematocrit 44.3 % (38.2-49.6) Mean Corpuscular Volume 95.7 fL (81-99) Mean Corpuscular Hemoglobin 29.4 pg (28-32) Mean Corpuscular Hemoglobin Concent 30.7 g/dL (31-35) Red Cell Distribution Width 14.4 % (11.7-14.4) Platelet Count 221 x10e3/uL (140-360) Neutrophils (%) (Auto) 72.2 % (38.7-80.0) Lymphocytes (%) (Auto) 10.3 % (18.0-39.1) Monocytes (%) (Auto) 13.2 % (4.4-11.3) Eosinophils (%) (Auto) 3.2 % (0.0-6.0) Basophils (%) (Auto) 0.7 % (0.0-1.0) Neutrophils # (Auto) 5.5 (2.1-6.9) Lymphocytes # (Auto) 0.8 (1.0-3.2) Monocytes # (Auto) 1.0 (0.2-0.8) Eosinophils # (Auto) 0.2 (0.0-0.4) Basophils # (Auto) 0.1 (0.0-0.1) Absolute Immature Granulocyte (auto 0.03 x10e3/uL (0-0.1) Sodium Level 140 mmol/L (136-145) Potassium Level 4.6 mmol/L (3.5-5.1) Chloride Level 97 mmol/L (98-107) Carbon Dioxide Level 33 mmol/L (22-29) Anion Gap 14.6 mmol/L (8-16) Blood Urea Nitrogen 9 mg/dL (7-26) Creatinine 0.77 mg/dL (0.72-1.25) Estimat Glomerular Filtration Rate > 60 ML/MIN (60-) BUN/Creatinine Ratio 12 (6-25) Glucose Level 97 mg/dL (74-118) Calcium Level 9.3 mg/dL (8.4-10.2) Total Bilirubin 0.6 mg/dL (0.2-1.2) Aspartate Amino Transf (AST/SGOT) 18 IU/L (5-34) Alanine Aminotransferase (ALT/SGPT) 11 IU/L (0-55) Alkaline Phosphatase 87 IU/L (40-150) Creatine Kinase 57 IU/L (30-200) Creatine Kinase MB 1.70 ng/mL (0-5.0) Troponin I 0.004 ng/mL (0-0.300) B-Type Natriuretic Peptide 58.3 pg/mL (0-100) Total Protein 7.1 g/dL (6.5-8.1) Albumin 4.3 g/dL (3.5-5.0) Globulin 2.8 g/dL (2.3-3.5) Albumin/Globulin Ratio 1.5 (0.8-2.0) Lab results reviewed: Yes Imaging Imaging results reviewed: Yes Critical Care Time Total Critical Care Time (min): 65 Critical care time exclusive o: separately billable procedures Critcal care necessary due to: respiratory failure Assessment & Plan Medical Decision Making MDM 74-year-old male arrives to the ED with acute respiratory distress, history of pulmonary fibrosis. Patient required more supplemental oxygen for respiratory support. Patient placed on BiPAP all the emergency department for respiratory support. Concerns of possible impending sepsis noted at 1600 with the need for BiPAP or noninvasive mechanical ventilation. Patient received blood cultures, broad spectrum antibiotics, lactic acid noted to be 1.0. Assessment & Plan Final Impression: (1) COPD exacerbation (2) Acute respiratory distress Depart Disposition: ADMITTED Last Vital Signs Date Time Temp Pulse Resp B/P (MAP) Pulse Ox O2 Delivery O2 Flow Rate FiO2 11/17/19 12:48 97.6 85 32 173/91 93 Nasal Cannula 6.0 Home Meds Reported Medications Budesonide/Formoterol Fumarate (SYMBICORT 160-4.5 MCG INHALER) 10.2 Gm Hfa.aer.ad, 1 SPRAYS INH BID 09/16/18 Tiotropium [place] (SPIRIVA) 18 Mcg Cap.w.dev, 18 MCG INH DAILY, BOTTLE 09/16/18 Atorvastatin Calcium (ATORVASTATIN CALCIUM) 20 Mg Tablet, 1 TAB PO HS, #30 TAB 09/16/18 Albuterol Sulf* (PROAIR HFA INHALER*) 8.5 Gm Inh, 90 MCG INH PRN 05/29/17 Metoprolol Tartrate (METOPROLOL TARTRATE) 25 Mg Tablet, 12.5 MG PO DAILY, TAB 05/29/17 Clopidogrel Bisulfate* (PLAVIX) 75 Mg Tablet, 75 MG PO DAILY, #30 TAB 05/29/17 TOAN YIP, Nov 17, 2019 15:27
[2019-11-17] MEDS: METHYLPREDNISOLONE SOD SUCC 125 MG/2ML VIAL IV SCH (15:36)
[2019-11-17] MEDS: CEFEPIME 1GM/NS 0.9% 50 ML 50 ML IV SCH ×2 (15:36→21:22)
[2019-11-17] MEDS ORDERED: CLONIDINE HCL 0.2 MG TAB PO PRN (16:15)
[2019-11-17 16:20] LABS: ABG PH 7.19 (7.35-7.45)
[2019-11-17 16:21] LABS: ABG HCO3 38 mmol/L (22-26); ABG PCO2 101 mmHg (35-45); ABG PO2 112 mmHg (80-105); ABG TCO2 41
[2019-11-17] MEDS: ALBUTEROL/IPRATROPIUM 3 ML NEB NEB SCH ×2 (16:25→19:42)
--- NOTE | 2019-11-17 16:53 | Diagnostic Imaging Report ---
EXAM: CT Chest WITHOUT intravenous contrast 11/17/2019 4:00 PM INDICATION: Respiratory failure COMPARISON: Chest radiograph earlier the same day TECHNIQUE: Chest was scanned utilizing a multidetector helical scanner from the lung apex through the level of the adrenal glands without administration of IV contrast. Coronal and sagittal reformations were obtained. Routine protocol was performed. IV CONTRAST: None RADIATION DOSE: Total DLP: 518 mGy*cm. Dose modulation, iterative reconstruction, and/or weight based adjustment of the mA/kV was utilized to reduce the radiation dose to as low as reasonably achievable. COMPLICATIONS: None FINDINGS: LINES/ TUBES: None. LUNGS AND AIRWAYS: The central airways are patent. Moderate to severe bilateral upper lobe predominant centrilobular and paraseptal emphysema. Medial right apical bleb measures up to 2.7 cm. No focal consolidation or pulmonary edema. Right lower lobe calcified granuloma. Dependent bilateral lower lobe subpleural blebbing. PLEURA: The pleural spaces are clear. HEART AND MEDIASTINUM: The thyroid gland is normal. No mediastinal, hilar or axillary lymphadenopathy. The heart is normal in size.. There is no pericardial effusion. Mild atherosclerotic calcifications of the aorta, coronary arteries, and proximal great vessels. UPPER ABDOMEN: No acute findings in the upper abdomen. BONES: No acute osseous injury. No suspicious lytic or blastic lesions. SOFT TISSUES: Unremarkable. IMPRESSION: Hyperinflated lungs with moderate to severe bilateral centrilobular and paraseptal emphysema and multifocal subpleural blebbing. No focal pneumonia or pulmonary edema. Signed by: Freida Busch MD on 11/17/2019 4:49 PM
[2019-11-17] MEDS: TOBRAMYCIN 40 MG/ML 2ML VIAL INH SCH (19:00)
[2019-11-17] MEDS: BUDESONIDE/FORMOTEROL 160/4.5MCG INHALER INH SCH ×2 (19:00→19:35)
[2019-11-17] MEDS ORDERED: SYMBICORT 16010.2 GM INH (19:27)
[2019-11-17 20:00] VITALS: BP 124/69
--- NOTE | 2019-11-17 20:00 | NUR ---
2000 Pa Patient received from ER. Patient AAOX3. PERRLA 3mm and Brisk. Patient able to Move all extremities. Patient noted on BIPAP IPAP 12 EPAP 6 Fio2 40%. 124/69 MAP 87. HR 86 Sat 100% RR 22. Patient denies any pain at this time. PIV bilateral AC noted with Dressing DRY and INTACT. Safety Maintained. Will continue to monitor.
[2019-11-17 21:00] VITALS: BP 128/59
[2019-11-17] MEDS ORDERED: ZOLPIDEM TARTRATE 5 MG TAB PO PRN (21:00)
--- NOTE | 2019-11-17 21:37 | History and Physical ---
CHIEF COMPLAINT: Worsening dyspnea and congestion. HISTORY OF PRESENT ILLNESS: The patient is a 74-year-old man with a history of severe COPD. He uses oxygen at home as well as nebulizer. He reports difficulty breathing for several weeks. He had 2 rounds of prednisone as an outpatient along with some antibiotics, but has not improved. He also has not improved with frequent nebulizers. He complains of worsening dyspnea and congestion. He has a cough that is discolored. He does not complain of chest pain or fevers. PAST SURGICAL HISTORY: 1. Status post left knee replacement. 2. Status post rotator cuff tear. 3. Status post lumbar spine surgery. 4. Status post right ankle surgery. PAST MEDICAL HISTORY: 1. COPD as noted above. 2. Bronchoscopy in 2019, showed Pseudomonas bronchitis. 3. No prior history of cardiac disease. SOCIAL HISTORY: The patient was a former smoker, but is not smoking now. He is not an active drinker. ALLERGIES: NO KNOWN DRUG ALLERGIES. FAMILY HISTORY: Family history is noncontributory. REVIEW OF SYSTEMS: The patient is afebrile. He has no neck pain or headache. He is not complaining of any chest pain. He does have some cough and congestion. He has some phlegm production. He has no abdominal pain. He has no nausea or vomiting. He has no leg edema. PHYSICAL EXAMINATION: VITAL SIGNS: Blood pressure is 173/90, saturation is 93% on 6 L, and pulse is 85. HEENT: Shows no facial swelling or erythema. LYMPHATIC: Shows no submandibular, cervical, or supraclavicular adenopathy. CARDIAC: Reveals regular rate and rhythm with normal S1 and S2. LUNGS: Auscultation of lungs reveals a prolonged expiratory phase bilaterally. There is some wheezing. There are some rhonchi. ABDOMEN: Soft and nontender. There is no rebound or guarding. EXTREMITIES: Show no leg edema or calf tenderness. There is no cyanosis or clubbing. SKIN: Shows no rashes. NEUROLOGICAL: Shows no focal abnormalities. LABORATORY DATA: White blood cell count is 7.5, hemoglobin is 13.6, and platelet count is 221. RADIOGRAPHIC DATA: Chest x-ray shows hyperinflated lung [place] bilaterally. IMPRESSION: 1. [id number] respiratory failure. 2. Chronic obstructive pulmonary disease with acute exacerbation. 3. History of Pseudomonas bronchitis. 4. Rhinosinusitis. PLAN: 1. The patient will be started on Solu-Medrol 60 mg IV q.12. 2. Aggressive bronchodilators. 3. Antibiotics to cover for prior Pseudomonas infection. The patient will be on tobramycin inhaler as well as cefepime. 4. The patient will also have cultures done. 5. CT scan of chest. 6. ABG. 7. Echocardiogram. MD VALDEMAR Fernández/SIENNA /[id number]
[2019-11-17 22:00] VITALS: BP 131/67
[2019-11-17 23:00] VITALS: BP 153/75
[2019-11-18] VITALS (24 sets, daily range): BP systolic 93–197; BP diastolic 54–76
[2019-11-18] MEDS: ALBUTEROL/IPRATROPIUM 3 ML NEB NEB SCH ×7 (00:51→23:00)
[2019-11-18] MEDS: METHYLPREDNISOLONE SOD SUCC 125 MG/2ML VIAL IV SCH ×3 (04:35→20:31)
[2019-11-18 04:56] LABS: BASOPHILS % 0.3 % (0.0-1.0); HEMATOCRIT 39.9 % (38.2-49.6); HEMOGLOBIN 12.6 g/dL (14.0-18.0); LYMPHOCYTES # (AUTO) 0.3 (1.0-3.2); LYMPHOCYTES % 8.5 % (18.0-39.1); MEAN CORPUSCULAR HEMOGLOBIN 30.2 pg (28-32); MEAN CORPUSCULAR HGB CONC 31.6 g/dL (31-35); MEAN CORPUSCULAR VOLUME 95.7 fL (81-99); MONOCYTES # (AUTO) 0.1 (0.2-0.8); MONOCYTES % 2.7 % (4.4-11.3); NEUTROPHILS # (AUTO) 2.9 (2.1-6.9); NEUTROPHILS % 88.2 % (38.7-80.0); PLATELET COUNT 195 x10e3/uL (140-360); RED BLOOD COUNT 4.17 x10e6/uL (4.3-5.7); RED CELL DISTRIBUTION WIDTH 14.4 % (11.7-14.4)
[2019-11-18 05:35] LABS: CREATINE KINASE MB 1.8 ng/mL (0-5.0)
[2019-11-18] MEDS: CEFEPIME 1GM/NS 0.9% 50 ML 50 ML IV SCH ×3 (06:29→20:31)
[2019-11-18 06:37] LABS: BAND NEUTROPHILS % (MANUAL) 8 %; LYMPHOCYTES % (MANUAL) 10 % (19-48); MONOCYTES % (MANUAL) 2 % (3.4-9.0); NEUTROPHILS % (MANUAL) 80 % (40-74)
--- NOTE | 2019-11-18 06:58 | NUR ---
Report given to RN. VSS Safety Maintained.
[2019-11-18 07:29] LABS: ALANINE AMINOTRANSFERASE 11 IU/L (0-55); ALBUMIN/GLOBULIN RATIO 1.5 (0.8-2.0); ALKALINE PHOSPHATASE 73 IU/L (40-150); ANION GAP 20.4 mmol/L (8-16); BLOOD UREA NITROGEN 16 mg/dL (7-26); BUN/CREATININE RATIO 21 (6-25); CALCIUM 9.1 mg/dL (8.4-10.2); CARBON DIOXIDE 25 mmol/L (22-29); CHLORIDE 98 mmol/L (98-107); CREATININE, SERUM 0.78 mg/dL (0.72-1.25); EST GLOMERULAR FILTRATION RATE > 60 ML/MIN (60-); GLUCOSE 110 mg/dL (74-118); POTASSIUM 4.4 mmol/L (3.5-5.1); SODIUM 139 mmol/L (136-145)
[2019-11-18] MEDS: TOBRAMYCIN 40 MG/ML 2ML VIAL INH SCH (08:05)
[2019-11-18] MEDS: BUDESONIDE/FORMOTEROL 160/4.5MCG INHALER INH SCH (08:05)
--- NOTE | 2019-11-18 09:49 | Progress Note ---
DATE: Pulmonary Critical Care Progress Note SUBJECTIVE: The patient received Solu-Medrol and bronchodilators last night. He feels better. He has less dyspnea. He still is very fatigued and has a very poor exercise tolerance. PHYSICAL EXAMINATION: VITAL SIGNS: The saturation is now 100% on a nasal cannula. His heart rate is 110-120. His respiratory rate is in the mid 20s. HEENT: Shows no facial swelling or erythema. LYMPHATIC: Shows no submandibular, cervical, or supraclavicular adenopathy. CARDIAC: Reveals regular rate and rhythm with normal S1, S2. LUNGS: Auscultation of lungs reveals prolonged expiratory phase bilaterally. There is some mild wheezing. ABDOMEN: Soft, nontender. There is no rebound or guarding. EXTREMITIES: Shows no leg edema or calf tenderness. There is no cyanosis or clubbing. SKIN: Shows no rashes. LABORATORY DATA: BUN to creatinine ratio is normal. The other electrolytes are within normal limits. White blood cell count is 3.2 and hemoglobin is 12.6. The platelet count is 195. RADIOGRAPHIC DATA: CT scan of the chest shows changes consistent with severe COPD and emphysema. IMPRESSION: 1. Qonty-ri-xrgcohl respiratory failure. 2. Chronic obstructive pulmonary disease with acute exacerbation. 3. History of Pseudomonas bronchitis. 4. Rhinosinusitis. PLAN: 1. Continue Solu-Medrol. 2. Continue bronchodilators. 3. Continue current antibiotics and await culture results. 4. Repeat ABG. 5. Physical therapy. 6. Swallowing evaluation. Ascencion Rachel MD [facility]/NISHAL /[id number]
--- OUTSIDE RECORDS SUMMARY | 2019-11-18 10:25 | XMS REPORT | Continuity of Care Document ---
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 [employer] Head Name Role Phone REUBEN PUGA MD PCP Desmond PUGA Attphys Unavailable Stephanie GREENE Attphys Unavailable Andrew CORNEJO Attphys Unavailable Desmond PUGA Admphys Unavailable Andrew CORNEJO Admphys Unavailable Payers Payer Name Policy Type Policy Number Effective Date Expiration Date Pricilla Hyde o [id number] 2016 00:00:00 [facility] Medicare A Only [id number] 2011 00:00:00 [facility] Problems Condition Name Condition Details Condition Category Status Onset Date Resolution Date Last Treatment Date Treating Clinician Comments Source Chest pain Chest pain Problem Active C [facility] Elevated troponin level Elevated troponin Problem Active [facility] Allergies, Adverse Reactions, Alerts This patient has no known allergies or adverse reactions. Medications Ordered Medication Name Filled Medication Name Start Date Stop Da te Current Medication? Ordering Clinician Indication Dosage Frequency Signature (SIG) Comments Components Source Pantoprazole Sod (Protonix) 40 Mg/Ml Susp Pantoprazole Sod (Protonix) 40 Mg/Ml Susp 2016-12-23 00:00:00 2017-01-22 00:00:00 Luisa Cornejo Md 40 Twice Daily Before Meals [facility] Sucralfate 1 G/10 Ml Susp Sucralfate 1 G/10 Ml Susp 2016-12-23 0 0:00:00 2017-01-22 00:00:00 Luisa Cornejo Md 1 Before Meals And At Bedtime [facility] Albuterol/Ipratropium (Combivent Inhaler) 14.7 Gm Aero Albuterol/Ipratropium (Combivent Inhaler) 14.7 Gm Aero Yes [facility] Atorvastatin Calcium 20 Mg Tablet Atorvastatin Calcium 20 Mg Tablet Yes 20 Bedtime [facility] Clopidogrel Bisulfate (Plavix) 75 Mg Tablet Clopidogre l Bisulfate (Plavix) 75 Mg Tablet Yes 75 Daily [facility] Hydrochlorothiazide 25 Mg Tablet Hydrochlorothiazide 25 Mg Tablet Yes 25 Daily [facility] Symbicort Symbicort Yes Po [facility] Albuterol Sulfate 5 Mg/1 Ml Solution, Albuterol Sulfate 5 Mg/1 M l Solution, 2016-12-23 00:00:00 [facility] Fluticasone/Salmeterol (Advair 250-50 Diskus) 1 Each D isk.w.dev, Fluticasone/Salmeterol (Advair 250-50 Diskus) 1 Each Disk.w.dev, 2016-12-17 00:00:00 [facility] Procedures Procedure Date / Time Performed Performing Clinician [facility] e Computed tomography of chest without contrast 2016-12-19 00:00:0 0 REUBEN PUGA [facility] EXCISION OF STOMACH, PYLORUS, ENDO, DIAGN 2016-12-18 00:00:00 [facility] EXCISION OF UPPER ESOPHAGUS, ENDO, DIAGN 2016-12-18 00:00:00 CARLOS EDUARDO PEREZ [facility] Computed tomography of abdomen and pelvis with contrast 2016 00:00:00 KORIN GUERRA [facility] X-ray of chest, two views 2016-12-17 00:00:00 DIMAS [place] [facility] Encounters Start Date/Time End Date/Time Encounter Type [facility] ID Source 2017-04-28 13:57:00 2017-04-30 14:24:00 Discharged Inpatient ER [facility] [id number] [facility] 2016-12-17 15:25:00 2016-12-23 11:17:00 Discharged Inpatient ER WILLIAM CORNEJO [facility] [id number] [facility] Results Test Description Test Time Test Comments Results Result Comments Source CT CHEST WO 2019-11-17 16:44:00 [facility] [address] [address] Patient Name: MARY ZAMAN MR #: [id number] : 1945 Age/Sex: 74/M Req #: [id number] Adm Physician: REUBEN PUGA MD Ordered by: REUBEN PUGA MD Report #: [id number] Location: [facility] Room/Bed: [address] [address] Procedure: [id number] CT/CT CHEST WO Exam Date: 11/17/19 Exam Time: 1600 REPORT STATUS: Signed EXAM: CT Chest WITHOUT intravenous contrast 11/17/2019 4:00 PM INDICATION: Respiratory failure COMPARISON: Chest radiograph earlier the same day TECHNIQUE: Chest was scanned utilizing a multidetector helical scanner from the lung apex through the level of the adrenal glands without administration of IV contrast. Coronal and sagittal reformations were obtained. Routine protocol was performed. IV CONTRAST: None RADIATION DOSE: Total DLP: 518 mGy*cm. Dose modulation, iterative reconstruction, and/or weight based adjustment of the mA/kV was utilized to reduce the radiation dose to as low as reasonably achievable. COMPLICATIONS: None FINDINGS: LINES/ TUBES: None. LUNGS AND AIRWAYS: The central airways are patent. Moderate to severe bilateral upper lobe predominant centrilobular and paraseptal emphysema. Medial right apical bleb measures up to 2.7 cm. No focal consolidation or pulmonary edema. Right lower lobe calcified granuloma. Dependent bilateral lower lobe subpleural blebbing. PLEURA: The pleural spaces are clear. HEART AND MEDIASTINUM: The thyroid gland is normal. No mediastinal, hilar or axillary lymphadenopathy. The heart is normal in size.. There is no pericardial effusion. Mild atherosclerotic calcifications of the aorta, coronary arteries, and proximal great vessels. UPPER ABDOMEN: No acute findings in the upper abdomen. BONES: No acute osseous injury. No suspicious lytic or blastic lesions. SOFT TISSUES: Unremarkable. IMPRESSION: Hyperinflated lungs with moderate to severe bilateral centrilobular and paraseptal emphysema and multifocal subpleural blebbing. No focal pneumonia or pulmonary edema. Signed by: Edyta Ortiz MD on 11/17/2019 4:49 PM Dictated By: EDYTA ORTIZ MD 48 Transcribed By: ROSALIND on 11/17/191648 COPY TO: REUBEN PUGA MD CHEST SINGLE (PORTABLE) 2019-11-17 15:11:00 [address] [place] [address] Patient Name: MARY ZAMAN MR #: [id number] : 1945 Age/Sex: 74/M Req #: [id number] Adm Physician: REUBEN PUGA MD Ordered by: TOAN YIP DO Report #: [id number] Location: [facility] Room/Bed: [place] [address] Procedure: [id number] DX/CHEST SINGLE (PORTABLE) Exam Date: 11/17/19 Exam Time: 1455 REPORT STATUS: Signed EXAMINATION: CHEST SINGLE (PORTABLE) INDICATION: Shortness of breath COMPARISON: Chest radiograph 05/29/2017 FINDINGS: LINES/TUBES:None LUNGS:The lungs are hyperinflated. No focal consolidation or pulmonary edema. PLEURA:No pleural effusion or pneumothorax. MEDIASTINUM:The cardiomediastinal silhouette appears normal in size and shape. BONES/SOFT TISSUES:No acute osseous injury. ABDOMEN:No free air under the diaphragm. IMPRESSION: Hyperinflated lungs. No focal pneumonia or pulmonary edema. Signed by: Edyta Ortiz MD on 11/17/2019 3:12 PM Dictated By: EDYTA ORTIZ MD 11 Transcribed By: ROSALIND on 11/17/191511 COPY TO: TOAN YIP DO Platelet Estimate 2017-04-29 07:53:00 Test Item Platelet Estimate (test code = 94768-5) ADEQUATE [facility] HospitalPlatelet Morphology Jhudqnz3998-05-75 07:53:00* Test Item Value Reference Range Interpretation Comments Platelet Morphology Comment (test code = 53626-9) NORMAL [facility] HospitalRed Cell Morphology Ypfzlyi7616-41-06 07:53:00* Test Item Value Reference Range Interpretation Comments Red Cell Morphology Comment (test code = 6742-1) NORMAL [facility] Incyu7183-84-32 06:30:00* Test Item Value Reference Range Interpretation Comments Sodium Level (test code = 2951-2) 141 136-145 [facility] HospitalPotassium Nguke3075-73-07 06:30:00* Test Item Value Reference Range Interpretation Comments Potassium Level (test code = 2823-3) 3.8 3.5-5.1 [facility] HospitalChloride Lxijc6538-69-44 06:30:00* Test Item Value Reference Range Interpretation Comments Chloride Level (test code = 2075-0) 106 98-107 [facility] HospitalCarbon Dioxide Rzwdi0680-48-02 06:30:00* Test Item Value Reference Range Interpretation Comments Carbon Dioxide Level (test code = 2028-9) 25 22-29 [facility] HospitalAnion Qon7212-39-28 06:30:00* Test Item Value Reference Range Interpretation Comments Anion Gap (test code = 42952-7) 13.8 8-16 [facility] HospitalBlood Urea Obqppaxx6656-14-87 06:30:00* Test Item Value Reference Range Interpretation Comments Blood Urea Nitrogen (test code = 3094-0) 15 7-26 [facility] HospitalCreatinine2018-02-28 06:30:00* Test Item Value Reference Range Interpretation Comments Creatinine (test code = 2160-0) 0.75 0.72-1.25 [facility] HospitalBUN/Creatinine Eauwv6313-31-38 06:30:00* Test Item Value Reference Range Interpretation Comments BUN/Creatinine Ratio (test code = 3097-3) 20 6-25 [facility] HospitalEstimat Glomerular Filtration Rate 2017-04-29 06:30:00* Test Item Value Reference Range Interpretation Comments Estimat Glomerular Filtration Rate (test code = 68963-8) 60- >60 Ranges were taken from the National Kidney Disease Education Program and the [facility] Kidney Foundation literature.Reference ranges:60 or greater: Ayubfx29-23 ( for 3 consecutive months): Chronic kidney disease 15 or less: Kidney failureCHI Parkland Memorial HospitalGlucose Uminh1543-17-76 06:30:00* Test Item Value Reference Range Interpretation Comments Glucose Level (test code = ZIJ1749) 148 74-118 H [facility] HospitalCalcium Jujrq4051-99-85 06:30:00* Test Item Value Reference Range Interpretation Comments Calcium Level (test code = 02435-3) 8.9 8.4-10.2 [facility] HospitalMagnesium Jlmgx2871-67-91 06:30:00* Test Item Value Reference Range Interpretation Comments Magnesium Level (test code = 15638-0) 1.8 1.3-2.1 [facility] HospitalTotal Oqeubfuet7204-56-08 06:30:00* Test Item Value Reference Range Interpretation Comments Total Bilirubin (test code = 1975-2) 0.5 0.2-1.2 [facility] HospitalAspartate Amino Transf (AST/SGOT) 2017-04-29 06:30:00* Test Item Value Reference Range Interpretation Comments Aspartate Amino Transf (AST/SGOT) (test code = Aspartate Amino Transf (AST/SGOT)) 40 5-34 H [facility] HospitalAlanine Aminotransferase (ALT/SGPT) 2017-04-29 06:30:00* Test Item Value Reference Range Interpretation Comments Alanine Aminotransferase (ALT/SGPT) (test code = 1742-6) 17 0-55 [facility] HospitalTotal Jlnpmxu2173-62-08 06:30:00* Test Item Value Reference Range Interpretation Comments Total Protein (test code = 2885-2) 6.3 6.5-8.1 L [facility] HospitalAlbumin2018-02-28 06:30:00* Test Item Value Reference Range Interpretation Comments Albumin (test code = 1751-7) 3.0 3.5-5.0 L [facility] HospitalGlobulin2018-02-28 06:30:00* Test Item Value Reference Range Interpretation Comments Globulin (test code = 08415-1) 3.3 2.3-3.5 [facility] HospitalAlbumin/Globulin Eawzi9438-32-06 06:30:00 * Test Item Value Reference Range Interpretation Comments Albumin/Globulin Ratio (test code = 1759-0) 0.9 0.8-2.0 [facility] HospitalAlkaline Bseqyaobgbt4530-82-70 06:30:00* Test Item Value Reference Range Interpretation Comments Alkaline Phosphatase (test code = 6768-6) 78 40-150 [facility] HospitalProthrombin Lssv5005-37-57 06:21:00* Test Item Value Reference Range Interpretation Comments Prothrombin Time (test code = 5902-2) 14.4 11.9-14.5 [facility] HospitalProthromb Time International Ratio 2017-04-29 06:21:00* Test Item Value Reference Range Interpretation Comments Prothromb Time International Ratio (test code = 6301-6) 1.21 Oral Anticoagulant Therapy INR Values:1. Low Intensity Therapy 1.5 - 2.02 . Moderate Intensity Therapy 2.0 - 3.03. High Intensity Therapy(1) 2.5 - 3. 54. High Intensity Therapy(2) 3.0 - 4.05. Panic Value INR > 5.0 [facility] HospitalWhite Blood Qovsx9203-44-20 06:09:00* Test Item Value Reference Range Interpretation Comments White Blood Count (test code = 6690-2) 8.67 4.8-10.8 [facility] HospitalRed Blood Tsxsr5280-69-55 06:09:00* Test Item Value Reference Range Interpretation Comments Red Blood Count (test code = 789-8) 4.37 4.3-5.7 [facility] HospitalHemoglobin2018-02-28 06:09:00* Test Item Value Reference Range Interpretation Comments Hemoglobin (test code = 28892-8) 12.0 14.0-18.0 L [facility] HospitalHematocrit2018-02-28 06:09:00* Test Item Value Reference Range Interpretation Comments Hematocrit (test code = 4544-3) 35.6 38.2-49.6 L [facility] HospitalMean Corpuscular Tymwxy1416-92-88 06:09:00* Test Item Value Reference Range Interpretation Comments Mean Corpuscular Volume (test code = 787-2) 81.5 81-99 [facility] HospitalMean Corpuscular Gbqkmezsna8155-22-77 06:09:00* Test Item Value Reference Range Interpretation Comments Mean Corpuscular Hemoglobin (test code = 785-6) 27.5 28-32 L [facility] HospitalMean Corpuscular Hemoglobin Concent 2017-04-29 06:09:00* Test Item Value Reference Range Interpretation Comments Mean Corpuscular Hemoglobin Concent (test code = 786-4) 33.7 31-35 [facility] HospitalRed Cell Distribution Zvgll6276-90-47 06:09:00* Test Item Value Reference Range Interpretation Comments Red Cell Distribution Width (test code = 82533-2) 18.0 11.7 -14.4 H [facility] HospitalPlatelet Tcrsr8909-07-18 06:09:00* Test Item Value Reference Range Interpretation Comments Platelet Count (test code = 777-3) 267 140-360 [facility] HospitalNeutrophils (%) (Auto)2017-04-29 06:09:00 * Test Item Value Reference Range Interpretation Comments Neutrophils (%) (Auto) (test code = 60317-1) 90.9 38.7-80.0 H [facility] HospitalLymphocytes (%) (Auto)2017-04-29 06:09:00 * Test Item Value Reference Range Interpretation Comments Lymphocytes (%) (Auto) (test code = 736-9) 4.8 18.0-39.1 L [facility] HospitalMonocytes (%) (Auto)2017-04-29 06:09:00* Test Item Value Reference Range Interpretation Comments Monocytes (%) (Auto) (test code = 5905-5) 3.5 4.4-11.3 L [facility] HospitalEosinophils (%) (Auto)2017-04-29 06:09:00 * Test Item Value Reference Range Interpretation Comments Eosinophils (%) (Auto) (test code = 713-8) 0.0 0.0-6.0 [facility] HospitalBasophils (%) (Auto)2017-04-29 06:09:00* Test Item Value Reference Range Interpretation Comments Basophils (%) (Auto) (test code = 706-2) 0.1 0.0-1.0 [facility] HospitalIM GRANULOCYTES %2017-04-29 06:09:00* Test Item Value Reference Range Interpretation Comments IM GRANULOCYTES % (test code = IM GRANULOCYTES %) 0.7 0.0- 1.0 [facility] HospitalNeutrophils # (Auto)2017-04-29 06:09:00* Test Item Value Reference Range Interpretation Comments Neutrophils # (Auto) (test code = 751-8) 7.9 2.1-6.9 H [facility] HospitalLymphocytes # (Auto)2017-04-29 06:09:00* Test Item Value Reference Range Interpretation Comments Lymphocytes # (Auto) (test code = 13711-0) 0.4 1.0-3.2 L [facility] HospitalMonocytes # (Auto)2017-04-29 06:09:00* Test Item Value Reference Range Interpretation Comments Monocytes # (Auto) (test code = 742-7) 0.3 0.2-0.8 [facility] HospitalEosinophils # (Auto)2017-04-29 06:09:00* Test Item Value Reference Range Interpretation Comments Eosinophils # (Auto) (test code = 711-2) 0.0 0.0-0.4 [facility] HospitalBasophils # (Auto)2017-04-29 06:09:00* Test Item Value Reference Range Interpretation Comments Basophils # (Auto) (test code = 704-7) 0.0 0.0-0.1 [facility] HospitalAbsolute Immature Granulocyte (auto 2017-04-29 06:09:00* Test Item Value Reference Range Interpretation Comments Absolute Immature Granulocyte (auto (michael t code = Absolute Immature Granulocyte (auto) 0.06 0-0.1 [facility] HospitalCreatine Hijimy5767-11-51 23:04:00* Test Item Value Reference Range Interpretation Comments Creatine Kinase (test code = 2157-6) 369 30-200 H [facility] HospitalCreatine Kinase MT5625-00-14 23:04:00* Test Item Value Reference Range Interpretation Comments Creatine Kinase MB (test code = 19169-6) 13.20 0-5.0 H [facility] HospitalTroponin F3345-33-91 23:04:00* Test Item Value Reference Range Interpretation Comments Troponin I (test code = XJZ4834) 3.962 0-0.300 H Elevated result called to RILEY SCOTT RN at 2303 on 04/28/17 by Andrez Grider .[facility] HospitalTriglycerides Zkoyf7336-90-87 06:47:00* Test Item Value Reference Range Interpretation Comments Triglycerides Level (test code = 2571-8) 100 0-149 [facility] HospitalCholesterol Tcafy0099-88-71 06:47:00* Test Item Value Reference Range Interpretation Comments Cholesterol Level (test code = 2093-3) 140 0-199 Less than 200 mg/dL Low Hddw146 - 239 mg/dL Borderline Pueh405 m g/dl and greater High Risk [facility] HospitalLDL Iqoznibrkyy3345-41-70 06:47:00* Test Item Value Reference Range Interpretation Comments LDL Cholesterol (test code = 2089-1) 86 60-130 [facility] HospitalHDL Dghbwvznnzg3711-90-11 06:47:00* Test Item Value Reference Range Interpretation Comments HDL Cholesterol (test code = 2085-9) 34 40-60 L [facility] HospitalCholesterol/HDL Bowtt4612-69-40 06:47:00 * Test Item Value Reference Range Interpretation Comments Cholesterol/HDL Ratio (test code = 9830-1) 4.1 3.9-4.7 [facility] HospitalActivated Partial Thromboplast Time 2017-04-27 23:18:00* Test Item Value Reference Range Interpretation Comments Activated Partial Thromboplast Time (test code = 32362-4) 28.9 23.8-35.5 [facility] HospitalTotal Ueqbipfejrrx8132-03-12 04:33:00* Test Item Value Reference Range Interpretation Comments Total Testosterone (test code = 2986-8) 305.5 264.0-916.0 This [facility] LC/MS-MS method is currently certified by [facility] Hormone Standardiz ation Program (HoSt). Adult malereference interval is based on a population of h ealthynonobese males (BMI <30) between 19 and 39 years old.Darrius et.al. JCEM 2017,102;7405-3496. PMID: 54639931.This test was developed and its performance characteristicsdetermined by [employer]. It has not been cleared orapproved by the Food and Drug Administration.[facility] HospitalFree Ovplxdmkdigr4654-58-70 04:33:00* Test Item Value Reference Range Interpretation Comments Free Testosterone (test code = 2991-8) 3.5 6.6-18.1 L Performed at: [address] [id number] [employer] Cheese: Jules Ramachandran MD, Phone: [phone] Memorial HospitalBedside Kcohgpe4009-28-14 00:15:00* Test Item Value Reference Range Interpretation Comments Bedside Glucose (test code = 36706-6) 351 70-120 H Meter ID: [id number] Memorial HospitalDifferential Total Cells Kxcmqbl9942-85-62 09:25:00* Test Item Value Reference Range Interpretation Comments Differential Total Cells Counted (test code = Differwil tial Total Cells Counted) 100 [facility] HospitalNeutrophils % (Manual)2016-12-20 09:25:00 * Test Item Value Reference Range Interpretation Comments Neutrophils % (Manual) (test code = 41947-1) 93 40-74 H [facility] HospitalBand Neutrophils %2016-12-20 09:25:00* Test Item Value Reference Range Interpretation Comments Band Neutrophils % (test code = 764-1) 2 [facility] HospitalLymphocytes % (Manual)2016-12-20 09:25:00 * Test Item Value Reference Range Interpretation Comments Lymphocytes % (Manual) (test code = 737-7) 5 19-48 L [facility] HospitalMonocytes % (Manual)2016-12-18 06:57:00* Test Item Value Reference Range Interpretation Comments Monocytes % (Manual) (test code = 744-3) 10 3.4-9.0 H [facility] HospitalMetamyelocytes %2016-12-18 06:57:00* Test Item Value Reference Range Interpretation Comments Metamyelocytes % (test code = 740-1) 1 0-0 H [facility] HospitalMyelocytes %2016-12-18 06:57:00* Test Item Value Reference Range Interpretation Comments Myelocytes % (test code = 749-2) 1 0-0 H [facility] HospitalHypochromasia2017-10-19 06:57:00* Test Item Value Reference Range Interpretation Comments Hypochromasia (test code = 728-6) SLIGHT [facility] HospitalAnisocytosis2017-10-19 06:57:00* Test Item Value Reference Range Interpretation Comments Anisocytosis (test code = 702-1) SLIGHT [facility] HospitalTear Drop Igimf2612-05-61 06:57:00* Test Item Value Reference Range Interpretation Comments Tear Drop Cells (test code = 7791-7) FEW [facility] HospitalIron Ivvca2470-79-64 06:31:00* Test Item Value Reference Range Interpretation Comments Iron Level (test code = 2498-4) 78 65-175 [facility] HospitalTotal Iron Binding Gskpybjw7200-43-57 06:31:00* Test Item Value Reference Range Interpretation Comments Total Iron Binding Capacity (test code = 2500-7) 288 261-4 78 [facility] HospitalPercent Iron Nuaxzeqcop3849-75-78 06:31:00* Test Item Value Reference Range Interpretation Comments Percent Iron Saturation (test code = 2502-3) 27 15-50 [facility] HospitalTransferrin2017-10-19 06:31:00* Test Item Value Reference Range Interpretation Comments Transferrin (test code = 3034-6) 206 174-364 [facility] HospitalThyroid Stimulating Hormone (TSH) 2016-12-17 21:37:00* Test Item Value Reference Range Interpretation Comments Thyroid Stimulating Hormone (TSH) (test code = 54361-6) 2.208 0.350-4.940 [facility] HospitalFree Thyroxine Frnrr5163-68-89 20:34:00* Test Item Value Reference Range Interpretation Comments Free Thyroxine Index (test code = 13720-6) 2.1595 1.4-3.8 [facility] HospitalThyroxine (T4)2016-12-17 20:34:00* Test Item Value Reference Range Interpretation Comments Thyroxine (T4) (test code = 3026-2) 7.65 4.5-10.9 [facility] HospitalTriiodothyronine (T3) Sblpwk6332-38-19 19:40:00* Test Item Value Reference Range Interpretation Comments Triiodothyronine (T3) Uptake (test code = 3050-2) 28.23 22.5 0-37.00 [facility] HospitalUrine BYL5339-54-20 14:54:00* Test Item Value Reference Range Interpretation Comments Urine WBC (test code = 5821-4) 0-5 0-5 [facility] HospitalUrine CZJ2153-41-20 14:54:00* Test Item Value Reference Range Interpretation Comments Urine RBC (test code = 46084-4) 0-5 0-5 [facility] HospitalUrine Wlknqkys0568-32-65 14:54:00* Test Item Value Reference Range Interpretation Comments Urine Bacteria (test code = 14896-8) NONE NONE [facility] HospitalUrine Epithelial Uqblm8452-89-37 14:54:00 * Test Item Value Reference Range Interpretation Comments Urine Epithelial Cells (test code = 59790-5) NONE NONE [facility] HospitalUrine Mnjty2906-45-56 14:54:00* Test Item Value Reference Range Interpretation Comments Urine Mucus (test code = 8247-9) FEW RARE H [facility] HospitalUrine Qczqd5470-32-71 14:35:00* Test Item Value Reference Range Interpretation Comments Urine Color (test code = 5778-6) YELLOW YELLOW [facility] HospitalUrine Ikhuvww3556-64-64 14:35:00* Test Item Value Reference Range Interpretation Comments Urine Clarity (test code = 67063-1) CLEAR CLEAR [facility] HospitalUrine Specific Qikrein6669-91-89 14:35:00 * Test Item Value Reference Range Interpretation Comments Urine Specific Harvey (test code = 5811-5) 1.015 1.010-1.02 5 [facility] HospitalUrine sB7807-41-51 14:35:00* Test Item Value Reference Range Interpretation Comments Urine pH (test code = 43979-0) 5 5-7 [facility] HospitalUrine Leukocyte Bdsvxwvl8640-59-34 14:35:00* Test Item Value Reference Range Interpretation Comments Urine Leukocyte Esterase (test code = 5799-2) NEGATIVE NEGATIVE [facility] HospitalUrine Uthqbod8272-64-45 14:35:00* Test Item Value Reference Range Interpretation Comments Urine Nitrite (test code = 16245-6) NEGATIVE NEGATIVE [facility] HospitalUrine Gquiaio6418-03-50 14:35:00* Test Item Value Reference Range Interpretation Comments Urine Protein (test code = 5804-0) NEGATIVE NEGATIVE [facility] HospitalUrine Glucose (UA)2016-12-17 14:35:00* Test Item Value Reference Range Interpretation Comments Urine Glucose (UA) (test code = 2349-9) NEGATIVE NEGATIVE [facility] HospitalUrine Tdwhfls1728-88-53 14:35:00* Test Item Value Reference Range Interpretation Comments Urine Ketones (test code = 36346-1) NEGATIVE NEGATIVE [facility] Hkqpkktizdxb6702-99-37 14:35:00* Test Item Value Reference Range Interpretation Comments Urine Urobilinogen (test code = 42263-7) 0.2 0.2-1 [facility] Nnrulndgr5599-64-61 14:35:00* Test Item Value Reference Range Interpretation Comments Urine Bilirubin (test code = 1978-6) NEGATIVE NEGATIVE [facility] Uewvt6847-40-86 14:35:00* Test Item Value Reference Range Interpretation Comments Urine Blood (test code = 23605-7) NEGATIVE NEGATIVE [facility] HospitalAmylase Lanfp1948-59-01 10:59:00* Test Item Value Reference Range Interpretation Comments Amylase Level (test code = 1798-8) 26 25-125 [facility]2017-10-18 10:59:00* Test Item Value Reference Range Interpretation Comments Lipase (test code = 3040-3) 11 8-78 [facility] [address] [address] Patient Name: MARY ZAMAN MR #: [id number] : 1945 Age/Sex: 71/M Req #: [id number] Adm Physician: Ordered by: WILLIAM GREENE MD Report #: [id number] Location: ER Room /Bed: Procedure: [id number] DX/CHEST SINGLE (PORTABLE) Exam Date: Exam Time: REPORT STATUS: Signed CHEST SINGLE (PORTABLE), 05/29/2017 2:00 AM Technique: CHEST SINGLE (POR TABLE) Comparison: 04/27/2017 Clinical history: Shortness of breath Find ings: Stable appearance of the heart, mediastinum, lungs and pleural spaces. Underlying emphysema with right lower lobe calcified granuloma. Impression: Emphysema without consolidation. Signed by: Dr Deb Rosales MD on 05/02 2:55 AM Dictated By: DEB ROSALES MD 4 Transcribed By: ROSALIND on 05/29/17254 COPY TO: WILLIAM GREENE MD CHEST SINGLE (PORTABLE) [place] [address] Patient Name: MARY ZAMAN MR #: [id number] : Age/Sex: 71/M Req #: [id number] Adm Physician: Ordered by: WILLIAM GREENE MD Report #: [id number] Location: ER Room /Bed: Procedure: [id number] DX/CHEST SINGLE (PORTABLE) Exam Date: 04/27/17 Exam Time: [address] ATUS: Signed EXAM: CHEST SINGLE (PORTABLE), AP 1 view ORDER DATE: 04/27/2017 9:46 PM Time stamp on exam: 2152 hours INDICATION: Chest pain, shortness of breath COMPARISON: None FINDINGS: LINES/TUBES: None LUNGS: No cons olidations or edema. Calcified granuloma right lower lobe. Emphysematous delong es. PLEURA: No effusions or pneumothorax. HEART AND MEDIASTINUM: Camryn l size and contour. BONES AND SOFT TISSUES: No acute findings. Ligamentous screws right humeral head. IMPRESSION: Emphysematous changes. No consol idations. Signed by: Dr. Kevin Gonsalez M.D. on 04/27/2017 10:26 P M Dictated By: KEVIN GONSALEZ MD 25 Transcribed By: ROSALIND on 04/27/172225 COPY TO: WILLIAM MAY MD CT CHEST WO [place] [address] Patient Name: MARY ZAMAN MR #: [id number] : 1945 Age/Sex: 71/M Req #: [id number] Adm Physician: WILLIAM CORNEJO MD Ordered by: REUBEN PUGA MD Report #: [id number] Location: ICU Room/Bed: ICU Formerly [facility] Procedure: [id number] CT/CT CHES T WO Exam Date: 12/19/16 Exam Time: 0955 REPOR T STATUS: Signed EXAM: CT Chest WITHOUT contrast INDICATION: Cough and shor tness of breath. COMPARISON: None TECHNIQUE: Chest was scann ed utilizing a multidetector helical scanner from the lung apex through the le giacomo of the adrenal glands without administration of IV contrast. Absence of in travenous contrast decreases sensitivity for detection of lymphadenopathy and vascular pathology. Coronal and sagittal reformations were obtained. Routine p rotocol was performed. IV CONTRAST: None COMPLICATIONS: None RADIATION DOSE: Total DLP: 538.8 mGy*cm Estimated effective dose: (DLP x 0.014 x size factor) mSv CTDIvol has been reviewed. It is below the limits set by the Radiation Protocol Committee (RPC). FIND INGS: LINES/ TUBES: None. LUNGS AND AIRWAYS: Upper lobe predominant c entrilobular and paraseptal emphysematous changes. No focal consolidation. Rig ht lower lobe calcified granuloma. Nonspecific 2 mm left lower lobe groundgla ss nodule (series 3, image 40). Few additional punctate left lower lobe nodule s. Bibasilar small areas of linear atelectasis/scarring. Airways are normal. PLEURA: The pleural spaces are clear. Mild bilateral lower lobe, right more on left, pleural thickening/irregularity. HEART AND MEDIASTINUM: The thyr oid gland is normal. No mediastinal, hilar or axillary lymphadenopathy. The heart is normal in size.. There is no pericardial effusion. Mild atherosclero tic calcification of coronary arteries. Aorta measures 3.6 cm at the level of right pulmonary artery. UPPER ABDOMEN: Splenic calcified granuloma. VITA VANGIE: The visualized bony thorax is within normal limits. SOFT TISSUES: Unre markable. IMPRESSION: 1. No evidence of pneumonia. 2. Centrilobular a nd paraseptal emphysematous changes. 3. Evidence of prior granulomatous disea se. 4. Few tiny nonspecific lung nodules. Without risk factors, no follow-up is necessary. If the patient is high risk, follow-up with low-dose chest CT in one year is recommended. 5. Minimal pleural thickening/irregularity, espec ially in the lower lobes. Signed by: Dr. Lg Shaffer MD on 12/19/2016 12 :10 PM Dictated By: LG SHAFFER MD 1210 Transcribed By: ROSALIND on 12/19/16 1210 COPY TO : REUBEN PUGA MD CHEST SINGLE (PORTABLE) [place] [address] Patient Name: MARY ZAMAN MR #: [id number] : 1945 Age/Sex: 71/M Req #: [id number] Adm Physician: WILLIAM CORNEJO MD Ordered by: SARAH SMITH MD Report #: [id number] Location: ICU Room/Bed: ICU [facility] Procedure: [id number] DX/ALEXIS ST SINGLE (PORTABLE) Exam Date: Exam Time: R EPORT STATUS: Signed EXAMINATION: CHEST SINGLE (PORTABLE) INDICATIO N: Dyspnea, screening COMPARISON: 05/18/2015 FINDINGS: TUBES and LINES: None. LUNGS: Lungs are well inflated. Right lower lo be lateral aspect airspace opacity. PLEURA: No pleural effusion or pneumothorax. HEART AND MEDIASTINUM: The cardiomediastinal silhouette is unremarkable. BONES AND SOFT TISSUES: No acute osseous lesion. Soft t issues are unremarkable. UPPER ABDOMEN: No free air under the diaphragm. IMPRESSION: Findings in the lateral right lung base are suspicious f or developing pneumonia. Signed by: Dr. Onesimo Alcantara M.D. on 7 5:35 AM Dictated By: ONESIMO MAS MD 0535 Transcribed By: ROSALIND on 12/19/16 0 535 COPY TO: SARAH SMITH MD ECHO COMPLETE (ECHOCARDIOGRAM) [place] [address] Patient Name : MARY ZAMAN MR #: [id number] : 0 1945 Age/Sex: 71/M Adm Physici an : WILLIAM CORNEJO MD Admit Date : 12/17/16 Location : MED/SURG2 Room/Bed : [facility] REPORT: Cardiology Report DATE OF STUDY: December 17, 2016 ECHOCARDIOGRAM M-MODE: Normal chamber sizes. Left ventricular hypertrophy. Borderline left ventricular c ontractility. Normal mitral and aortic valves. No pericardial effusion. SECTOR SCAN: Suboptimal study with poor image quality. Normal chamber siz es. Left ventricular hypertrophy. Borderline contractility. Slight paradox ical wall motion. Ejection fraction 45% to 50%. Mitral, aortic and tricuspi d valves are grossly normal. There is no pericardial effusion. CARDIAC DOP PLER STUDY WITH COLOR: No significant regurgitation or stenosis. CONCLU SIONS 1. Suboptimal study with poor image quality. 2. Left ventricular hyper trophy with ejection fraction in the range of 45% to 50%. 3. No significa nt tricuspid regurgitation to estimate pulmonary artery systolic pressure. Job#: [id number] Signature Date Dictated By: WILLIAM CORNEJO MD Transcribed By: SMEDS on 12/18/16 <Electronically signed by WILLIAM CORNEJO MD><<Signature on File>>12/26/16 1015 COPY TO: CHEST 2 VIEWS [place] [address] Patient Name: MARY ZAMAN MR #: [id number] : 1945 Age/Sex: 71/M Req #: [id number] Adm Physician: Ordered by: DIMAS BIRMINGHAM MD Report #: [id number] Location: ER Room/Bed: Procedure: [id number] DX/CHEST 2 VIEWS Exam Date: Exam Time: 1309 REPORT STATUS: Signed PROCEDURE: Frontal and lateral views of the chest. COMPARISON: None. INDICATIONS: THROWING UP/SHORTNESS OF BREATH FINDINGS: Lines/t ubes: None. Lungs: Bilateral hyperinflation. The There is no evidence of pneumonia or pulmonary edema. Pleura: There is no pleural effusion or pneumothorax. Heart and mediastinum: The heart and the mediastinum are no rmal. Bones: No acute bony abnormality. Mild wedging of midthoracic ve rtebral bodies. IMPRESSION: 1. Bilateral hyperinflation suggestive of COPD. Meg Luna M.D. Dictated by: Meg hu M.D. on 12/17/2016 at 13:53 Electronically approved by: Meg Luna M.D. on 12/17/2016 at 13:53 Dictated By: ALESSIO WHITLEY MD, MD 1353 T ranscribed By: CATERINA on 12/17/16 1353 COPY TO: DIMAS BIRMINGHAM MD CT ABDOMEN/PELVIS W [place] [address] Patient Name: MARY ZAMAN MR #: [id number] : 1945 Age/Sex: 71/M Req #: [id number] Adm Physician: Ordered by: KORIN GUERRA [employer] Report #: [id number] Location: ER Room/Bed: Procedure: [id number] CT/CT ABDOMEN/PELVIS W Exam D ate: 12/17/16 Exam Time: 1309 REPORT STATUS: Si gned EXAM: CT Abdomen and Pelvis WITH contrast INDICATION: Abdominal pain . Leukocytosis. Melena. COMPARISON: None. TECHNIQUE: Abdomen and pelvis were scanned utilizing a multidetector helical scanner from the lung base to the p ubic symphysis after administration of IV contrast. Coronal and sagittal refor mations were obtained. Routine protocol was performed. Scan was performed when during portal venous phase. IV CONTRAST: 100 cc Isovue-370. ORAL CONTRAST: 30 cc of Gastrografin diluted in 870 cc of water. RADIATION DOSE: Total DLP: 436.78 mGy*cm Estimated effective dose: (DLP x 0.015 x size factor) mSv COMPLICATIONS: None FINDINGS: LINES and TUBES: None. LOWER THORAX: Mild bibasilar depend ent atelectasis. HEPATOBILIARY: No focal hepatic lesions. No biliary ductal dilation. GALLBLADDER: High attenuation material within the dependent gal lbladder suggestive of calculi. No wall thickening. SPLEEN: No splenomega ly. PANCREAS: No focal masses or ductal dilatation. ADRENALS: No ad renal nodules KIDNEYS/URETERS: Kidneys enhance symmetrically. No hydro nephrosis. 1.6 cm cyst partially exophytic of the lower pole of the left kidne y on image 40 series 2. 4 mm low-attenuation lesion in the anterior cortex of the lower interpolar region of the right kidney on image 26 series 2 small to be characterized, however, most likely benign in etiology. 2 subcentimeter low -attenuation lesions in the interpolar region and upper pole of the left kidne y on coronal image 71 are too small to be characterized, however, most likely cysts. No stones. GI TRACT: No abnormal distention, wall thickening, or e vidence of bowel obstruction. Appendix is normal. Scattered colonic diverticu la without CT evidence of diverticulitis. There is made of relatively haustral transverse and descending colon. PELVIC ORGANS/BLADDER: Unremarkable. LYMPH NODES: No lymphadenopathy. VESSELS: Tortuous abdominal aorta with atherosclerotic changes and mild focal ectasia just distal to the origin of th e TAD, measuring 2.8 cm in transverse dimension on image 37 series 2. PER ITONEUM / RETROPERITONEUM: No free air or fluid. BONES: Status post laminec devora and posterior fusion of L4-L5 with transpedicular screws system. Multilev el degenerative disc disease and spondylosis of the lumbar, and the lower thor acic spine. SOFT TISSUES: Unremarkable. IMPRESSION: 1. No acute abdominopelvic abnormality. 2. Sigmoid diverticulosis without acute divertic ulitis. 3. Cholelithiasis. No biliary dilatation. Signed by: Dr. Meg Luna M.D. on 12/17/2016 2:39 PM Dictated By: ALESSIO LUNA MD, MD 1439 Transcribed By: ROSALIND on 12/17/16 143 COPY TO: KORIN GUERRA NP
--- OUTSIDE RECORDS SUMMARY | 2019-11-18 10:25 | XMS REPORT | Continuity of Care Document ---
Author Author [facility] t Organization [facility] Address [address] [place] [address] Phone Unavailable Care Team Providers Care Services Account Manager Name Role Phone REUBEN PUGA MD PCP Desmond PUGA Attphys Unavailable Stephanie GREENE Attphys Unavailable Andrew CORNEJO Attphys Unavailable Desmond PUGA Admphys Unavailable Andrew CORNEJO Admphys Unavailable Payers Payer Name Policy Type Policy Number Effective Date Expiration Date Pricilla Hyde o [id number] 2016 00:00:00 [facility] Medicare A Only [id number] 2011 00:00:00 [facility] Problems Condition Name Condition Details Condition Category Status Onset Date Resolution Date Last Treatment Date Treating Clinician Comments Source Chest pain Chest pain Problem Active C [facility] Elevated troponin level Elevated troponin Problem Active [facility] Allergies, Adverse Reactions, Alerts This patient has no known allergies or adverse reactions. Medications Ordered Medication Name Filled Medication Name Start Date Stop Da te Current Medication? Ordering Clinician Indication Dosage Frequency Signature (SIG) Comments Components Source Pantoprazole Sod (Protonix) 40 Mg/Ml Susp Pantoprazole Sod (Protonix) 40 Mg/Ml Susp 2016-12-23 00:00:00 2017-01-22 00:00:00 Luisa Cornejo Md 40 Twice Daily Before Meals [facility] Sucralfate 1 G/10 Ml Susp Sucralfate 1 G/10 Ml Susp 2016-12-23 0 0:00:00 2017-01-22 00:00:00 Luisa Cornejo Md 1 Before Meals And At Bedtime [facility] Albuterol/Ipratropium (Combivent Inhaler) 14.7 Gm Aero Albuterol/Ipratropium (Combivent Inhaler) 14.7 Gm Aero Yes [facility] Atorvastatin Calcium 20 Mg Tablet Atorvastatin Calcium 20 Mg Tablet Yes 20 Bedtime [facility] Clopidogrel Bisulfate (Plavix) 75 Mg Tablet Clopidogre l Bisulfate (Plavix) 75 Mg Tablet Yes 75 Daily [facility] Hydrochlorothiazide 25 Mg Tablet Hydrochlorothiazide 25 Mg Tablet Yes 25 Daily [facility] Symbicort Symbicort Yes Po [facility] Albuterol Sulfate 5 Mg/1 Ml Solution, Albuterol Sulfate 5 Mg/1 M l Solution, 2016-12-23 00:00:00 [facility] Fluticasone/Salmeterol (Advair 250-50 Diskus) 1 Each D isk.w.dev, Fluticasone/Salmeterol (Advair 250-50 Diskus) 1 Each Disk.w.dev, 2016-12-17 00:00:00 [facility] Procedures Procedure Date / Time Performed Performing Clinician [facility] Computed tomography of chest without contrast 2016-12-19 00:00:0 0 REUBEN PUGA [facility] EXCISION OF STOMACH, PYLORUS, ENDO, DIAGN 2016-12-18 00:00:00 [facility] EXCISION OF UPPER ESOPHAGUS, ENDO, DIAGN 2016-12-18 00:00:00 CARLOS EDUARDO PEREZ [facility] Computed tomography of abdomen and pelvis with contrast 2016 00:00:00 KORIN GUERRA [facility] X-ray of chest, two views 2016-12-17 00:00:00 DIMAS B[place]AM [facility] Encounters Start Date/Time End Date/Time [facility] ID Source 2017-04-28 13:57:00 2017-04-30 14:24:00 Discharged Inpatient ER WILLIAM GREENE [facility] [id number] [facility] 2016-12-17 15:25:00 2016-12-23 11:17:00 Discharged Inpatient ER WILLIAM CORNEJO [facility] [id number] [facility] Results Test Description Test Time Test Comments Results Result Comments Source CT CHEST WO 2019-11-17 16:44:00 [facility] [address] [address] Patient Name: MARY ZAMAN MR #: [id number] : 1945 Age/Sex: 74/M Req #: [id number] Adm Physician: REUBEN PUGA MD Ordered by: REUBEN PUGA MD Report #: [id number] Location: [facility] Room/Bed: [address] [address] Procedure: [id number] CT/CT CHEST WO Exam Date: 11/17/19 Exam [...] PUGA MD CHEST SINGLE (PORTABLE) 2019-11-17 15:11:00 [address] [address] Patient Name: MARY ZAMAN MR #: [id number] : 1945 Age/Sex: 74/M Req #: [id number] Adm Physician: REUBEN PUGA MD Ordered by: TOAN YIP DO Report #: [id number] Location: [facility] Room/Bed: [place] [address] Procedure: [id number] DX/CHEST SINGLE (PORTABLE) Exam Date: 11/17/19 Exam [...] Test Item Platelet Estimate (test code = 52455-9) ADEQUATE [facility] HospitalPlatelet Morphology Hugpjhs0944-56-36 07:53:00* Test Item Value Reference Range Interpretation Comments Platelet Morphology Comment (test code = 73192-8) NORMAL [facility] HospitalRed Cell Morphology Oajhmrs9792-31-98 07:53:00* Test Item Value Reference Range Interpretation Comments Red Cell Morphology Comment (test code = 6742-1) NORMAL [facility] Mrmpl7810-23-06 06:30:00* Test Item Value Reference Range Interpretation Comments Sodium Level (test code = 2951-2) 141 136-145 [facility] HospitalPotassium Llhyf3798-54-65 06:30:00* Test Item Value Reference Range Interpretation Comments Potassium Level (test code = 2823-3) 3.8 3.5-5.1 [facility] HospitalChloride Qghnh1304-24-46 06:30:00* Test Item Value Reference Range Interpretation Comments Chloride Level (test code = 2075-0) 106 98-107 [facility] HospitalCarbon Dioxide Rmmrc2783-00-72 06:30:00* Test Item Value Reference Range Interpretation Comments Carbon Dioxide Level (test code = 2028-9) 25 22-29 [facility] HospitalAnion Oer6734-88-12 06:30:00* Test Item Value Reference Range Interpretation Comments Anion Gap (test code = 58153-4) 13.8 8-16 [facility] HospitalBlood Urea Nbjzqjlz9765-74-14 06:30:00* Test Item Value Reference Range Interpretation Comments Blood Urea Nitrogen (test code = 3094-0) 15 7-26 [facility] HospitalCreatinine2018-02-28 06:30:00* Test Item Value Reference Range Interpretation Comments Creatinine (test code = 2160-0) 0.75 0.72-1.25 [facility] HospitalBUN/Creatinine Dmfyp5727-27-21 06:30:00* Test Item Value Reference Range Interpretation Comments BUN/Creatinine Ratio (test code = 3097-3) 20 6-25 [facility] HospitalEstimat Glomerular Filtration Rate 2017-04-29 06:30:00* Test Item Value Reference Range Interpretation Comments Estimat Glomerular Filtration Rate (test code = 86963-9) 60- >60 Ranges were taken from the National Kidney Disease Education Program and the [facility] healthcare systemsal Kidney Foundation literature.Reference ranges:60 or greater: Wyxwrq59-00 ( for 3 consecutive months): Chronic kidney disease 15 or less: Kidney failureCHI [facility] HospitalGlucose Bqeen3957-72-12 06:30:00* Test Item Value Reference Range Interpretation Comments Glucose Level (test code = VHY1155) 148 74-118 H [facility] HospitalCalcium Lxaxn6809-89-10 06:30:00* Test Item Value Reference Range Interpretation Comments Calcium Level (test code = 12016-1) 8.9 8.4-10.2 [facility] HospitalMagnesium Azzjh4075-71-66 06:30:00* Test Item Value Reference Range Interpretation Comments Magnesium Level (test code = 35636-2) 1.8 1.3-2.1 [facility] HospitalTotal Gsycgdxlu8910-93-42 06:30:00* Test Item Value Reference Range Interpretation Comments Total Bilirubin (test code = 1975-2) 0.5 0.2-1.2 [facility] HospitalAspartate Amino Transf (AST/SGOT) 2017-04-29 06:30:00* Test Item Value Reference Range Interpretation Comments Aspartate Amino Transf (AST/SGOT) (test code = Aspartate Amino Transf (AST/SGOT)) 40 5-34 H [facility] HospitalAlanine Aminotransferase (ALT/SGPT) 2017-04-29 06:30:00* Test Item Value Reference Range Interpretation Comments Alanine Aminotransferase (ALT/SGPT) (test code = 1742-6) 17 0-55 [facility] HospitalTotal Bdcisgh7493-29-75 06:30:00* Test Item Value Reference Range Interpretation Comments Total Protein (test code = 2885-2) 6.3 6.5-8.1 L [facility] HospitalAlbumin2018-02-28 06:30:00* Test Item Value Reference Range Interpretation Comments Albumin (test code = 1751-7) 3.0 3.5-5.0 L [facility] HospitalGlobulin2018-02-28 06:30:00* Test Item Value Reference Range Interpretation Comments Globulin (test code = 56869-2) 3.3 2.3-3.5 [facility] HospitalAlbumin/Globulin Ujhyd7067-85-34 06:30:00 * Test Item Value Reference Range Interpretation Comments Albumin/Globulin Ratio (test code = 1759-0) 0.9 0.8-2.0 [facility] HospitalAlkaline Khmpzlfqalw0249-61-80 06:30:00* Test Item Value Reference Range Interpretation Comments Alkaline Phosphatase (test code = 6768-6) 78 40-150 [facility] HospitalProthrombin Gbkr8503-32-31 06:21:00* Test Item Value Reference Range Interpretation Comments Prothrombin Time (test code = 5902-2) 14.4 11.9-14.5 [facility] HospitalProthromb Time International Ratio 2017-04-29 06:21:00* Test Item Value Reference Range Interpretation Comments Prothromb Time International Ratio (test code = 6301-6) 1.21 Oral Anticoagulant Therapy INR Values:1. Low Intensity Therapy 1.5 - 2.02 . Moderate Intensity Therapy 2.0 - 3.03. High Intensity Therapy(1) 2.5 - 3. 54. High Intensity Therapy(2) 3.0 - 4.05. Panic Value INR > 5.0 [facility] HospitalWhite Blood Wnenf4688-30-57 06:09:00* Test Item Value Reference Range Interpretation Comments White Blood Count (test code = 6690-2) 8.67 4.8-10.8 [facility] HospitalRed Blood Nhehb7235-82-41 06:09:00* Test Item Value Reference Range Interpretation Comments Red Blood Count (test code = 789-8) 4.37 4.3-5.7 [facility] HospitalHemoglobin2018-02-28 06:09:00* Test Item Value Reference Range Interpretation Comments Hemoglobin (test code = 92537-8) 12.0 14.0-18.0 L [facility] HospitalHematocrit2018-02-28 06:09:00* Test Item Value Reference Range Interpretation Comments Hematocrit (test code = 4544-3) 35.6 38.2-49.6 L [facility] HospitalMean Corpuscular Gppuon2277-13-90 06:09:00* Test Item Value Reference Range Interpretation Comments Mean Corpuscular Volume (test code = 787-2) 81.5 81-99 [facility] HospitalMean Corpuscular Hzvzxkmpuw9014-10-81 06:09:00* Test Item Value Reference Range Interpretation Comments Mean Corpuscular Hemoglobin (test code = 785-6) 27.5 28-32 L [facility] HospitalMean Corpuscular Hemoglobin Concent 2017-04-29 06:09:00* Test Item Value Reference Range Interpretation Comments Mean Corpuscular Hemoglobin Concent (test code = 786-4) 33.7 31-35 [facility] HospitalRed Cell Distribution Kbctq6676-95-16 06:09:00* Test Item Value Reference Range Interpretation Comments Red Cell Distribution Width (test code = 69881-2) 18.0 11.7 -14.4 H [facility] HospitalPlatelet Csmyg3218-15-68 06:09:00* Test Item Value Reference Range Interpretation Comments Platelet Count (test code = 777-3) 267 140-360 [facility] HospitalNeutrophils (%) (Auto)2017-04-29 06:09:00 * Test Item Value Reference Range Interpretation Comments Neutrophils (%) (Auto) (test code = 35953-7) 90.9 38.7-80.0 H [facility] HospitalLymphocytes (%) (Auto)2017-04-29 06:09:00 * Test Item Value Reference Range Interpretation Comments Lymphocytes (%) (Auto) (test code = 736-9) 4.8 18.0-39.1 L [facility] HospitalMonocytes (%) (Auto)2017-04-29 06:09:00* Test Item Value Reference Range Interpretation Comments Monocytes (%) (Auto) (test code = 5905-5) 3.5 4.4-11.3 L [facility] HospitalEosinophils (%) (Auto)2017-04-29 06:09:00 * Test Item Value Reference Range Interpretation Comments Eosinophils (%) (Auto) (test code = 713-8) 0.0 0.0-6.0 [facility] HospitalBasophils (%) (Auto)2017-04-29 06:09:00* Test Item Value Reference Range Interpretation Comments Basophils (%) (Auto) (test code = 706-2) 0.1 0.0-1.0 [facility] HospitalIM GRANULOCYTES %2017-04-29 06:09:00* Test Item Value Reference Range Interpretation Comments IM GRANULOCYTES % (test code = IM GRANULOCYTES %) 0.7 0.0- 1.0 [facility] HospitalNeutrophils # (Auto)2017-04-29 06:09:00* Test Item Value Reference Range Interpretation Comments Neutrophils # (Auto) (test code = 751-8) 7.9 2.1-6.9 H [facility] HospitalLymphocytes # (Auto)2017-04-29 06:09:00* Test Item Value Reference Range Interpretation Comments Lymphocytes # (Auto) (test code = 36441-8) 0.4 1.0-3.2 L [facility] HospitalMonocytes # (Auto)2017-04-29 06:09:00* Test Item Value Reference Range Interpretation Comments Monocytes # (Auto) (test code = 742-7) 0.3 0.2-0.8 [facility] HospitalEosinophils # (Auto)2017-04-29 06:09:00* Test Item Value Reference Range Interpretation Comments Eosinophils # (Auto) (test code = 711-2) 0.0 0.0-0.4 [facility] HospitalBasophils # (Auto)2017-04-29 06:09:00* Test Item Value Reference Range Interpretation Comments Basophils # (Auto) (test code = 704-7) 0.0 0.0-0.1 [facility] HospitalAbsolute Immature Granulocyte (auto 2017-04-29 06:09:00* Test Item Value Reference Range Interpretation Comments Absolute Immature Granulocyte (auto (michael t code = Absolute Immature Granulocyte (auto) 0.06 0-0.1 [facility] HospitalCreatine Vldprj0271-25-08 23:04:00* Test Item Value Reference Range Interpretation Comments Creatine Kinase (test code = 2157-6) 369 30-200 H [facility] HospitalCreatine Kinase MP0541-43-56 23:04:00* Test Item Value Reference Range Interpretation Comments Creatine Kinase MB (test code = 12272-0) 13.20 0-5.0 H [facility] HospitalTroponin T9287-53-32 23:04:00* Test Item Value Reference Range Interpretation Comments Troponin I (test code = HQS6032) 3.962 0-0.300 H Elevated result called to RILEY SCOTT RN at 2303 on 04/28/17 by Andrez Grider .[facility] HospitalTriglycerides Smjvd4744-00-99 06:47:00* Test Item Value Reference Range Interpretation Comments Triglycerides Level (test code = 2571-8) 100 0-149 [facility] HospitalCholesterol Dpief8986-23-55 06:47:00* Test Item Value Reference Range Interpretation Comments Cholesterol Level (test code = 2093-3) 140 0-199 Less than 200 mg/dL Low Byff153 - 239 mg/dL Borderline Zbjh824 m g/dl and greater High Risk [facility] HospitalLDL Gjqpcfecuvf1543-58-15 06:47:00* Test Item Value Reference Range Interpretation Comments LDL Cholesterol (test code = 2089-1) 86 60-130 [facility] HospitalHDL Khbtaadkdmf2788-77-12 06:47:00* Test Item Value Reference Range Interpretation Comments HDL Cholesterol (test code = 2085-9) 34 40-60 L [facility] HospitalCholesterol/HDL Wtalr8960-97-11 06:47:00 * Test Item Value Reference Range Interpretation Comments Cholesterol/HDL Ratio (test code = 9830-1) 4.1 3.9-4.7 [facility] HospitalActivated Partial Thromboplast Time 2017-04-27 23:18:00* Test Item Value Reference Range Interpretation Comments Activated Partial Thromboplast Time (test code = 97089-4) 28.9 23.8-35.5 [facility] HospitalTotal Cftmxovxtlzl8010-40-80 04:33:00* Test Item Value Reference Range Interpretation Comments Total Testosterone (test code = 2986-8) 305.5 264.0-916.0 This [facility] LC/MS-MS method is currently certified by [facility] Hormone Standardiz ation Program (HoSt). Adult malereference interval is based on a population of h ealthynonobese males (BMI <30) between 19 and 39 years old.Darrius et.al. JCEM 2017,102;1500-4542. PMID: 90803143.This test was developed and its performance characteristicsdetermined by [employer]. It has not been cleared orapproved by the Food and Drug Administration.[facility] HospitalFree Ucuqpgxmyzti3948-36-92 04:33:00* Test Item Value Reference Range Interpretation Comments Free Testosterone (test code = 2991-8) 3.5 6.6-18.1 L Performed at: [address] [id number] Osteopathy Doctor: Jules Ramachandran MD, Phone: [phone] Hermann Greater [facility] HospitalBedside Dqjearn7929-80-83 00:15:00* Test Item Value Reference Range Interpretation Comments Bedside Glucose (test code = 82050-6) 351 70-120 H Meter ID: [id number] Hermann [facility] HospitalDifferential Total Cells Fffkvtx6770-72-47 09:25:00* Test Item Value Reference Range Interpretation Comments Differential Total Cells Counted (test code = Differwil tial Total Cells Counted) 100 [facility] HospitalNeutrophils % (Manual)2016-12-20 09:25:00 * Test Item Value Reference Range Interpretation Comments Neutrophils % (Manual) (test code = 13824-6) 93 40-74 H [facility] HospitalBand Neutrophils %2016-12-20 09:25:00* Test Item Value Reference Range Interpretation Comments Band Neutrophils % (test code = 764-1) 2 [facility] HospitalLymphocytes % (Manual)2016-12-20 09:25:00 * Test Item Value Reference Range Interpretation Comments Lymphocytes % (Manual) (test code = 737-7) 5 19-48 L [facility] HospitalMonocytes % (Manual)2016-12-18 06:57:00* Test Item Value Reference Range Interpretation Comments Monocytes % (Manual) (test code = 744-3) 10 3.4-9.0 H [facility] HospitalMetamyelocytes %2016-12-18 06:57:00* Test Item Value Reference Range Interpretation Comments Metamyelocytes % (test code = 740-1) 1 0-0 H [facility] HospitalMyelocytes %2016-12-18 06:57:00* Test Item Value Reference Range Interpretation Comments Myelocytes % (test code = 749-2) 1 0-0 H [facility] HospitalHypochromasia2017-10-19 06:57:00* Test Item Value Reference Range Interpretation Comments Hypochromasia (test code = 728-6) SLIGHT [facility] HospitalAnisocytosis2017-10-19 06:57:00* Test Item Value Reference Range Interpretation Comments Anisocytosis (test code = 702-1) SLIGHT [facility] HospitalTear Drop Jizto0015-91-66 06:57:00* Test Item Value Reference Range Interpretation Comments Tear Drop Cells (test code = 7791-7) FEW [facility] HospitalIron Fvlgv5365-07-99 06:31:00* Test Item Value Reference Range Interpretation Comments Iron Level (test code = 2498-4) 78 65-175 [facility] HospitalTotal Iron Binding Psxwtjid1842-23-00 06:31:00* Test Item Value Reference Range Interpretation Comments Total Iron Binding Capacity (test code = 2500-7) 288 261-4 78 [facility] HospitalPercent Iron Gssfurbpmt3758-24-29 06:31:00* Test Item Value Reference Range Interpretation Comments Percent Iron Saturation (test code = 2502-3) 27 15-50 [facility] HospitalTransferrin2017-10-19 06:31:00* Test Item Value Reference Range Interpretation Comments Transferrin (test code = 3034-6) 206 174-364 [facility] HospitalThyroid Stimulating Hormone (TSH) 2016-12-17 21:37:00* Test Item Value Reference Range Interpretation Comments Thyroid Stimulating Hormone (TSH) (test code = 52343-3) 2.208 0.350-4.940 [facility] HospitalFree Thyroxine Ypbzu4036-20-14 20:34:00* Test Item Value Reference Range Interpretation Comments Free Thyroxine Index (test code = 46178-1) 2.1595 1.4-3.8 [facility] HospitalThyroxine (T4)2016-12-17 20:34:00* Test Item Value Reference Range Interpretation Comments Thyroxine (T4) (test code = 3026-2) 7.65 4.5-10.9 [facility] HospitalTriiodothyronine (T3) Xduunf4725-59-74 19:40:00* Test Item Value Reference Range Interpretation Comments Triiodothyronine (T3) Uptake (test code = 3050-2) 28.23 22.5 0-37.00 [facility] HospitalUrine VMJ9906-29-50 14:54:00* Test Item Value Reference Range Interpretation Comments Urine WBC (test code = 5821-4) 0-5 0-5 [facility] HospitalUrine YPO7580-82-99 14:54:00* Test Item Value Reference Range Interpretation Comments Urine RBC (test code = 54028-1) 0-5 0-5 [facility] HospitalUrine Ugdvhmbb0200-58-18 14:54:00* Test Item Value Reference Range Interpretation Comments Urine Bacteria (test code = 24691-6) NONE NONE [facility] HospitalUrine Epithelial Wbdxk3572-21-54 14:54:00 * Test Item Value Reference Range Interpretation Comments Urine Epithelial Cells (test code = 44987-8) NONE NONE [facility] HospitalUrine Tnkda2390-71-19 14:54:00* Test Item Value Reference Range Interpretation Comments Urine Mucus (test code = 8247-9) FEW RARE H [facility] HospitalUrine Pszoe0881-48-26 14:35:00* Test Item Value Reference Range Interpretation Comments Urine Color (test code = 5778-6) YELLOW YELLOW [facility] HospitalUrine Ljsoivx7836-93-63 14:35:00* Test Item Value Reference Range Interpretation Comments Urine Clarity (test code = 27886-5) CLEAR CLEAR [facility] HospitalUrine Specific Srtpyhs7750-63-55 14:35:00 * Test Item Value Reference Range Interpretation Comments Urine Specific [place] (test code = 5811-5) 1.015 1.010-1.02 5 [facility] HospitalUrine rG4579-80-24 14:35:00* Test Item Value Reference Range Interpretation Comments Urine pH (test code = 91392-4) 5 5-7 [facility] HospitalUrine Leukocyte Rptnuvzs0029-70-33 14:35:00* Test Item Value Reference Range Interpretation Comments Urine Leukocyte Esterase (test code = 5799-2) NEGATIVE NEGATIVE [facility] HospitalUrine Gsyyept5854-00-12 14:35:00* Test Item Value Reference Range Interpretation Comments Urine Nitrite (test code = 11137-5) NEGATIVE NEGATIVE [facility] HospitalUrine Qiwvbhd2660-77-39 14:35:00* Test Item Value Reference Range Interpretation Comments Urine Protein (test code = 5804-0) NEGATIVE NEGATIVE [facility] HospitalUrine Glucose (UA)2016-12-17 14:35:00* Test Item Value Reference Range Interpretation Comments Urine Glucose (UA) (test code = 2349-9) NEGATIVE NEGATIVE [facility] HospitalUrine Fcuctip0523-87-51 14:35:00* Test Item Value Reference Range Interpretation Comments Urine Ketones (test code = 77335-3) NEGATIVE NEGATIVE [facility] HospitalUrine Diieyboefqej5782-40-49 14:35:00* Test Item Value Reference Range Interpretation Comments Urine Urobilinogen (test code = 44608-5) 0.2 0.2-1 [facility] HospitalUrine Jxzkcecuf5429-53-74 14:35:00* Test Item Value Reference Range Interpretation Comments Urine Bilirubin (test code = 1978-6) NEGATIVE NEGATIVE [facility] HospitalUrine Entxf7455-86-80 14:35:00* Test Item Value Reference Range Interpretation Comments Urine Blood (test code = 16443-3) NEGATIVE NEGATIVE [facility] HospitalAmylase Efqen3143-53-39 10:59:00* Test Item Value Reference Range Interpretation Comments Amylase Level (test code = 1798-8) 26 25-125 [facility] HospitalLipase2017-10-18 10:59:00* Test Item Value Reference Range Interpretation Comments Lipase (test code = 3040-3) 11 8-78 [facility] HospitalCHEST SINGLE (PORTABLE) [facility] [address] [place] [address] Patient Name: MARY ZAMAN MR #: [id number] : 1945 Age/Sex: 71/M Req #: [id number] Adm Physician: Ordered by: WILLIAM GREENE MD Report #: [id number] Location: ER Room /Bed: Procedure: [id number] DX/CHEST SINGLE (PORTABLE) Exam Date: Exam Time: [...] TO: WILLIAM GREENE MD CHEST SINGLE (PORTABLE) [place] [address] Patient Name: MARY ZAMAN MR #: [id number] : Age/Sex: 71/M Req #: [id number] Adm Physician: Ordered by: WILLIAM GREENE MD Report #: [id number] Location: ER Room /Bed: Procedure: [id number] DX/CHEST SINGLE (PORTABLE) Exam Date: 04/27/17 Exam [...] TO: WILLIAM MAY MD CT CHEST WO [place] [address] Patient Name: MARY ZAMAN MR #: [id number] : 1945 Age/Sex: 71/M Req #: [id number] Adm Physician: WILLIAM CORNEJO MD Ordered by: REUBEN PUGA MD Report #: [id number] Location: ICU Room/Bed: ICU [facility] Procedure: [id number] CT/CT CHES T WO Exam Date: 12/19/16 [...] : REUBEN PUGA MD CHEST SINGLE (PORTABLE) [place] [address] Patient Name: MARY ZAMAN MR #: [id number] : 1945 Age/Sex: 71/M Req #: [id number] Adm Physician: WILLIAM CORNEJO MD Ordered by: SARAH SMITH MD Report #: [id number] Location: ICU Room/Bed: ICU [facility] Procedure: [id number] DX/ALEXIS ST SINGLE (PORTABLE) Exam Date: Exam [...] TO: SARAH SMITH MD ECHO COMPLETE (ECHOCARDIOGRAM) [place] [address] Patient Name : MARY ZAMAN MR #: [id number] : 0 1945 Age/Sex: 71/M Adm Physici an : WILLIAM CORNEJO MD Admit Date : 12/17/16 Location : MED/SURG2 Room/Bed : [facility] REPORT: Cardiology Report DATE OF STUDY: December [...] to estimate pulmonary artery systolic pressure. Job#: [id number] Signature Date Dictated By: WILLIAM CORNEJO MD Transcribed By: SMEDS on 12/18/16 <Electronically signed by WILLIAM CORNEJO MD><<Signature on File>>12/26/16 1015 COPY TO: CHEST 2 VIEWS [place] [address] Patient Name: MARY ZAMAN MR #: [id number] : 1945 Age/Sex: 71/M Req #: [id number] Adm Physician: Ordered by: DIMAS BIRMINGHAM MD Report #: [id number] Location: ER Room/Bed: Procedure: [id number] DX/CHEST 2 VIEWS Exam Date: Exam Time: [...] TO: DIMAS BIRMINGHAM MD CT ABDOMEN/PELVIS W [place] [address] Patient Name: MARY ZAMAN MR #: [id number] : 1945 Age/Sex: 71/M Req #: [id number] Adm Physician: Ordered by: KORIN GUERRA B[employer]LET ASSEMBLER Report #: [id number] Location: ER Room/Bed: Procedure: [id number] CT/CT ABDOMEN/PELVIS W Exam D ate: 12/17/16 [...]
--- NOTE | 2019-11-18 10:32 | NUR ---
Echo staff at bedside
--- NOTE | 2019-11-18 10:57 | NUR ---
Clean cath urine collected labled and taken to lab
[2019-11-18 11:26] LABS: CLARITY,URINE CLEAR (CLEAR); COLOR,URINE ORANGE (YELLOW)
[2019-11-18 11:27] LABS: LEUKOCYTE ESTERASE ,URINE NEGATIVE (NEGATIVE); NITRITE,URINE NEGATIVE (NEGATIVE)
[2019-11-18 11:28] LABS: BILIRUBIN,URINE NEGATIVE (NEGATIVE); KETONES,URINE 2+ (NEGATIVE); PROTEIN,URINE DIPSTICK 1+ (NEGATIVE); URINE UROBILINOGEN 0.2 mg/dL (0.2 - 1)
[2019-11-18 11:29] LABS: BACTERIA,URINE RARE /HPF; EPITHELIAL CELLS,URINE FEW /LPF; RBC,URINE 0-5 /HPF (0-5); WBC,URINE (MAN) 0-5 /HPF (0-5)
[2019-11-18] MEDS: TIOTROPIUM 18 MCG INH POWDER INH SCH (12:10)
--- NOTE | 2019-11-18 12:26 | NUR ---
11:25 Patient sitting up in chair per PT ate lunch without difficulty and 12;20 speech therapist evaluated also
--- NOTE | 2019-11-18 16:10 | NUR ---
Labs( Cardiac markers) drawn labled and taken to lab
[2019-11-18 16:45] LABS: CREATINE KINASE MB 2.4 ng/mL (0-5.0)
--- NOTE | 2019-11-18 17:35 | NUR ---
Patient sitting up in chair eating , then used the urinal from monitor appears to be artifact
--- NOTE | 2019-11-18 17:42 | NUR ---
Eliazar Henderson phoned update given
[2019-11-18 19:46] LABS: ABG HCO3 27 mmol/L (22-26); ABG PCO2 46 mmHg (35-45); ABG PH 7.37 (7.35-7.45); ABG PO2 61 mmHg (80-105); ABG TCO2 28
[2019-11-19] VITALS (25 sets, daily range): BP systolic 105–157; BP diastolic 51–92
[2019-11-19] MEDS: TOBRAMYCIN 40 MG/ML 2ML VIAL INH SCH ×3 (00:05→19:15)
[2019-11-19] MEDS: ALBUTEROL/IPRATROPIUM 3 ML NEB NEB SCH ×3 (03:00→11:00)
[2019-11-19 04:27] LABS: BASOPHILS % 0.1 % (0.0-1.0); HEMATOCRIT 38.5 % (38.2-49.6); HEMOGLOBIN 12.5 g/dL (14.0-18.0); LYMPHOCYTES # (AUTO) 0.4 (1.0-3.2); LYMPHOCYTES % 2.9 % (18.0-39.1); MEAN CORPUSCULAR HEMOGLOBIN 29.5 pg (28-32); MEAN CORPUSCULAR HGB CONC 32.5 g/dL (31-35); MEAN CORPUSCULAR VOLUME 90.8 fL (81-99); MONOCYTES # (AUTO) 0.5 (0.2-0.8); MONOCYTES % 3.5 % (4.4-11.3); PLATELET COUNT 223 x10e3/uL (140-360); RED BLOOD COUNT 4.24 x10e6/uL (4.3-5.7); RED CELL DISTRIBUTION WIDTH 14.7 % (11.7-14.4)
[2019-11-19 04:45] LABS: ALANINE AMINOTRANSFERASE 13 IU/L (0-55); ALBUMIN 4.1 g/dL (3.5-5.0); ALBUMIN/GLOBULIN RATIO 1.6 (0.8-2.0); ALKALINE PHOSPHATASE 72 IU/L (40-150); ANION GAP 17.5 mmol/L (8-16); BLOOD UREA NITROGEN 26 mg/dL (7-26); BUN/CREATININE RATIO 30 (6-25); CALCIUM 9.5 mg/dL (8.4-10.2); CARBON DIOXIDE 28 mmol/L (22-29); CHLORIDE 101 mmol/L (98-107); CREATININE, SERUM 0.86 mg/dL (0.72-1.25); EST GLOMERULAR FILTRATION RATE > 60 ML/MIN (60-); GLUCOSE 147 mg/dL (74-118); POTASSIUM 4.5 mmol/L (3.5-5.1); SODIUM 142 mmol/L (136-145)
[2019-11-19] MEDS: CEFEPIME 1GM/NS 0.9% 50 ML 50 ML IV SCH ×3 (06:20→21:00)
[2019-11-19] MEDS ORDERED: ACETAMINOPHEN 325 MG TAB PO PRN (07:30)
[2019-11-19] MEDS: TIOTROPIUM 18 MCG INH POWDER INH SCH ×3 (07:35→15:13)
[2019-11-19] MEDS: METHYLPREDNISOLONE SOD SUCC 125 MG/2ML VIAL IV SCH ×2 (08:00→20:58)
[2019-11-19] MEDS: BUDESONIDE/FORMOTEROL 160/4.5MCG INHALER INH SCH ×2 (08:05→19:00)
--- NOTE | 2019-11-19 12:15 | Progress Note ---
DATE: SUBJECTIVE: The patient still has some tachycardia, although he is feeling better. He still has some dyspnea on exertion. PHYSICAL EXAMINATION: VITAL SIGNS: The patient is afebrile. The blood pressure is 129/79 and the pulse is 110. Saturating 100% on 3 L. HEENT: No facial swelling or erythema. LYMPHATIC: No submandibular, cervical, or supraclavicular adenopathy. CARDIAC: Regular rate and rhythm with normal S1, S2. LUNGS: Auscultation of lungs shows decreased breath sounds at the bases. There is no wheezing. ABDOMEN: Soft, nontender. There is no rebound or guarding. EXTREMITIES: No leg edema or calf tenderness. There is no cyanosis or clubbing. SKIN: No rashes. NEUROLOGICAL: No focal abnormalities. LABORATORY DATA: White blood cell count is 15.06 and hemoglobin is 12.5. The platelet count is 223. The BUN to creatinine ratio is normal. The other electrolytes are within normal limits. IMPRESSION: 1. Acute on chronic respiratory failure. 2. Chronic obstructive pulmonary disease with acute exacerbation. 3. History of Pseudomonas bronchitis. 4. Rhinosinusitis. PLAN: 1. Change to Xopenex as opposed to albuterol to avoid worsening tachycardia. 2. Continue Solu-Medrol. 3. Taper antibiotics. 4. Physical therapy. 5. Transfer to [facility]. MD VALDEMAR Fernández/NISHAL /[id number]
[2019-11-19] MEDS: LEVALBUTEROL HCL SOLN NEBU 0.63 MG/3 ML NEB INH SCH ×3 (15:30→23:15)
[2019-11-19] MEDS: IPRATROPIUM BROMIDE 0.02% 2.5 ML NEB NEB SCH ×2 (15:45→23:15)
[2019-11-20] VITALS (14 sets, daily range): BP systolic 120–173; BP diastolic 67–95
[2019-11-20 05:19] LABS: BASOPHILS % 0.1 % (0.0-1.0); HEMATOCRIT 37.2 % (38.2-49.6); HEMOGLOBIN 11.8 g/dL (14.0-18.0); LYMPHOCYTES # (AUTO) 0.3 (1.0-3.2); MEAN CORPUSCULAR HEMOGLOBIN 28.8 pg (28-32); MEAN CORPUSCULAR HGB CONC 31.7 g/dL (31-35); MEAN CORPUSCULAR VOLUME 90.7 fL (81-99); MONOCYTES # (AUTO) 0.5 (0.2-0.8); MONOCYTES % 3.6 % (4.4-11.3); NEUTROPHILS # (AUTO) 13.6 (2.1-6.9); NEUTROPHILS % 93.5 % (38.7-80.0); PLATELET COUNT 211 x10e3/uL (140-360); RED CELL DISTRIBUTION WIDTH 15.1 % (11.7-14.4)
[2019-11-20] MEDS: CEFEPIME 1GM/NS 0.9% 50 ML 50 ML IV SCH ×3 (05:34→20:40)
[2019-11-20 05:58] LABS: ALANINE AMINOTRANSFERASE 13 IU/L (0-55); ALBUMIN 3.7 g/dL (3.5-5.0); ALBUMIN/GLOBULIN RATIO 1.7 (0.8-2.0); ALKALINE PHOSPHATASE 63 IU/L (40-150); ANION GAP 12.3 mmol/L (8-16); BLOOD UREA NITROGEN 29 mg/dL (7-26); BUN/CREATININE RATIO 38 (6-25); CALCIUM 8.7 mg/dL (8.4-10.2); CARBON DIOXIDE 31 mmol/L (22-29); CHLORIDE 102 mmol/L (98-107); CREATININE, SERUM 0.76 mg/dL (0.72-1.25); EST GLOMERULAR FILTRATION RATE > 60 ML/MIN (60-); GLUCOSE 136 mg/dL (74-118); POTASSIUM 4.3 mmol/L (3.5-5.1); SODIUM 141 mmol/L (136-145)
--- NOTE | 2019-11-20 06:02 | Progress Note ---
DATE: 11/18/2019 SUBJECTIVE: The patient is feeling better. He has less dyspnea. He is now on nasal cannula. PHYSICAL EXAMINATION: VITAL SIGNS: The blood pressure is 101/59, saturation is 98% on nasal cannula, and the heart rate is 110-120. HEENT: No facial swelling or erythema. LUNGS: prolomged exp phase some wheezinh COR: Normal ABD: soft; nontender EXT: no edema IMP: Acute on Chronic Resp Failure COPD PLAN: steroids OOB antibiotics MD VALDEMAR Fernández/SIENNA /[id number] MTDD
[2019-11-20] MEDS: METHYLPREDNISOLONE SOD SUCC 125 MG/2ML VIAL IV SCH (08:23)
[2019-11-20] MEDS: LEVALBUTEROL HCL SOLN NEBU 0.63 MG/3 ML NEB INH SCH ×3 (08:30→19:20)
[2019-11-20] MEDS: IPRATROPIUM BROMIDE 0.02% 2.5 ML NEB NEB SCH ×2 (08:30→14:20)
[2019-11-20] MEDS: TOBRAMYCIN 40 MG/ML 2ML VIAL INH SCH (08:32)
[2019-11-20] MEDS: BUDESONIDE/FORMOTEROL 160/4.5MCG INHALER INH SCH ×2 (08:40→19:15)
[2019-11-20] MEDS: TIOTROPIUM 18 MCG INH POWDER INH SCH (11:51)
--- NOTE | 2019-11-20 15:35 | Progress Note ---
DATE: SUBJECTIVE: The patient is still requiring oxygen, but he is feeling better. He has less dyspnea. PHYSICAL EXAMINATION: VITAL SIGNS: Blood pressure is 139/89, saturation is 98% on 3 L. HEENT: Shows no facial swelling or erythema. LYMPHATIC: Shows no submandibular, cervical, supraclavicular adenopathy. CARDIAC: Reveals regular rate and rhythm with normal S1, S2. LUNGS: Auscultation of lungs reveals rhonchorous breath sounds bilaterally. There is no wheezing. ABDOMEN: Soft and nontender. There is no rebound or guarding. EXTREMITIES: Shows no leg edema or calf tenderness. There is no cyanosis or clubbing. LABORATORY DATA: White blood cell count is 14.6 and hemoglobin is 11.8, and the platelet count is 211. The BUN to creatinine ratio is normal. The other electrolytes within normal limits. Albumin is 3.7. IMPRESSION: 1. Acute on chronic respiratory failure. 2. Chronic obstructive pulmonary disease with acute exacerbation. 3. Rhinosinusitis. PLAN: 1. Continue Solu-Medrol. 2. Continue oxygen. 3. Continue bronchodilators. 4. Wean antibiotics. Ascencion Rachel MD [facility]/MODL /[id number]
[2019-11-20] MEDS: METHYLPREDNISOLONE SOD SUCC 40 MG/ML VIAL 1ML IV SCH (20:40)
[2019-11-21] VITALS (8 sets, daily range): BP systolic 139–161; BP diastolic 73–98
[2019-11-21] MEDS: LEVALBUTEROL HCL SOLN NEBU 0.63 MG/3 ML NEB INH SCH ×5 (00:30→23:40)
[2019-11-21] MEDS: IPRATROPIUM BROMIDE 0.02% 2.5 ML NEB NEB SCH ×4 (00:30→19:10)
--- NOTE | 2019-11-21 02:30 | NUR ---
report received on this patient at this time, patient received lying quietly in bed. vss. 04/04l/nc in use. respirations even and unlabored. no acute distress noted. call mata remains in place at patients side.
[2019-11-21] MEDS: CEFEPIME 1GM/NS 0.9% 50 ML 50 ML IV SCH ×3 (05:32→21:12)
[2019-11-21] MEDS: TIOTROPIUM 18 MCG INH POWDER INH SCH (06:00)
[2019-11-21] MEDS: BUDESONIDE/FORMOTEROL 160/4.5MCG INHALER INH SCH ×2 (07:08→19:10)
[2019-11-21] MEDS: METHYLPREDNISOLONE SOD SUCC 40 MG/ML VIAL 1ML IV SCH ×2 (10:04→20:54)
--- NOTE | 2019-11-21 10:18 | Progress Note ---
DATE: SUBJECTIVE: The patient feels better. He has less dyspnea. He was too weak with walking and required a walker. PHYSICAL EXAMINATION: VITAL SIGNS: Blood pressure is 139/98 and saturation is 100%, he is on 3 L. HEENT: Shows no facial swelling or erythema. LYMPHATIC: Shows no submandibular, cervical, or supraclavicular adenopathy. CARDIAC: Reveals regular rate and rhythm. Normal S1, S2. LUNGS: Auscultation of lungs reveals rhonchorous breath sounds bilaterally. There is no wheezing. ABDOMEN: Soft and nontender. There is no rebound or guarding. There is no leg edema or calf tenderness. There is no cyanosis or clubbing. SKIN: Shows no rashes. NEUROLOGICAL: Shows no focal abnormalities. LABORATORY DATA: White blood cell count is 14.6 and hemoglobin is 11.8, the platelet count is 211. The BUN to creatinine ratio is 29 to 0.76. The other electrolytes are within normal limits. IMPRESSION: 1. Qzmqi-sd-wrrroxw respiratory failure. 2. Chronic obstructive pulmonary disease with acute exacerbation. 3. Deconditioning and weakness. 4. Mild protein calorie malnutrition. PLAN: 1. Continue Solu-Medrol and bronchodilators. 2. Continue physical therapy. 3. Nutritional supplements. 4. Complete current antibiotics. 5. Probable discharge home tomorrow. Ascencion Rachel MD [facility] /[id number]
--- NOTE | 2019-11-21 12:21 | NUR ---
Handoff report given to Duane ZAPIEN made aware patient scripts were written today for possible discharge tomorrow. Patient transported via wheel chair to room 285, placed on oxygen 3 liters humidified upon arrival to room.
--- NOTE | 2019-11-21 12:38 | NUR ---
patient received from MICU via . all personal belongings with patient. vitals stable with no distress.
--- NOTE | 2019-11-21 19:50 | NUR ---
Received change of shift report from AM nurse. Walking rounds completed.
[2019-11-22] VITALS: BP 155/87
--- NOTE | 2019-11-22 | NUR ---
Patient AAOx3. Denies pain at this time. IV intact x2 bilateral AC. IV dry, clean and patent. Pt. O2 at 3L n/c. Tele Sr at 76. Continue monitor for changes.
--- NOTE | 2019-11-22 03:08 | NUR ---
Patient resting quitly with no c/o at this time.
[2019-11-22 04:00] VITALS: BP 151/83
[2019-11-22] MEDS: CEFEPIME 1GM/NS 0.9% 50 ML 50 ML IV SCH (06:00)
[2019-11-22 07:28] VITALS: BP 163/90
[2019-11-22] MEDS: LEVALBUTEROL HCL SOLN NEBU 0.63 MG/3 ML NEB INH SCH (07:38)
[2019-11-22] MEDS: IPRATROPIUM BROMIDE 0.02% 2.5 ML NEB NEB SCH (07:40)
[2019-11-22] MEDS: TIOTROPIUM 18 MCG INH POWDER INH SCH (08:17)
[2019-11-22 08:20] VITALS: BP 163/90
[2019-11-22 11:24] VITALS: BP 157/80
--- NOTE | 2019-11-22 13:35 | NUR ---
pt discharged home with his inhalers , resp even and unlabored at this time, pt was given his prescriptions and was educated on his medications, pt iv was removed, no swellinng no redness to site.
--- NOTE | 2019-11-22 18:06 | Discharge Summary ---
DISCHARGE DIAGNOSES: 1. Xeglx-yi-gwrgtii respiratory failure. 2. Chronic obstructive pulmonary disease with acute exacerbation. 3. Mild protein-calorie malnutrition. 4. Deconditioning. 5. Anemia, unspecified. DISCHARGE MEDICATIONS: 1. Symbicort 160/4.5 two puffs q.12. 2. Spiriva one capsule q.a.m. 3. Plavix 75 mg p.o. q.a.m. 4. Metoprolol tartrate 25 mg p.o. b.i.d. 5. Xopenex through nebulizers as needed p.r.n. 6. Albuterol sulfate inhaler for rescue p.r.n. 7. Prednisone taper. 8. Omnicef for 5 days. RADIOGRAPHIC DATA: CT scan of the chest shows hyperinflated lungs with mibxnudc-gc-zxekoh bilateral centrilobular and paraseptal emphysema. HISTORY OF PRESENT ILLNESS: The patient is a 74-year-old man. He has a history of severe COPD. He uses oxygen at home as well as nebulizer. He has difficulty breathing for several weeks despite using prednisone at home as well as nebulizers. HOSPITAL COURSE: The patient was admitted. He initially received some oxygen along with bronchodilators and Solu-Medrol. His ABG showed a pH of 7.19 with an elevated CO2 of 101. The patient was initiated on BiPAP and placed in the intensive care unit. He was continued on Solu-Medrol as well as bronchodilators and antibiotics. Over the night, he had some improvement. Followup ABG showed a pH of 7.37 with a CO2 of 46. He was transitioned from BiPAP to nasal cannula. The patient was transferred out of the intensive care unit. He was continued on Solu-Medrol. The Solu-Medrol was tapered. He was continued on bronchodilators. He was able to ambulate at the time of discharge and felt much better. He was eager to go home. DISPOSITION: The patient will be discharged home. He will follow up with Dr. Rachel in one week. Ascencion Rachel MD [facility] /[id number]
== END 2019-11-22 13:42 | disposition home or self-care (01) | DRG 189 ==
LOC: ER 13:30 → ERHOLD 13:38 → ICU 19:54 → IMCU 11-20 07:39 → MED/SURG3 11-21 11:29
PROVIDERS: ADMIT Internal Medicine Critical Care Medicine; ATTEND Internal Medicine Critical Care Medicine
PROC: 5A09357 Assistance with Respiratory Ventilation, Less than 24 Consecutive Hours, Continuous Positive Airway Pressure (ICD-10-PCS; principal; 2019-11-17)
DX: J96.20 Acute and chronic respiratory failure, unspecified whether with hypoxia or hypercapnia (principal); J44.1 Chronic obstructive pulmonary disease with (acute) exacerbation; E44.1 Mild protein-calorie malnutrition; J32.9 Chronic sinusitis, unspecified; R53.81 Other malaise; D64.9 Anemia, unspecified; Z11.59 Encounter for screening for other viral diseases
CPT/HCPCS: 36415; 36600; 71045; 71250; 80053; 81001; 82550; 82553; 82805; 83605; 83880; 84484; 85025; 87040; 93306; 94640; 94660; 94664; 97139; 99284; J0692; J2920; J2930; J3260; U0002

== ENCOUNTER 2021-06-17 19:47 | Inpatient (IN) | payer MEDICARE, OTHER ==
[~2021-06-17] VITALS: Ht 182.9 cm; Wt 79.4 kg
[2021-06-17] MEDS ORDERED: DIGOXIN INJ 0.25 MG/ML 2 ML AMP IV STA (19:50)
[2021-06-17] MEDS ORDERED: DILTIAZEM HCL 5 MG/ML 5 ML VIAL IV STA (19:50)
[2021-06-17] MEDS ORDERED: METOPROLOL TARTRATE INJ 1 MG/ML VIAL IV STA (19:50)
[2021-06-17 20:20] LABS: BASOPHILS # (AUTO) 0.1 (0.0-0.1); BASOPHILS % 0.8 % (0.0-1.0); EOSINOPHILS # (AUTO) 0.2 (0.0-0.4); EOSINOPHILS % 2.9 % (0.0-6.0); HEMATOCRIT 39.5 % (38.2-49.6); LYMPHOCYTES # (AUTO) 0.7 (1.0-3.2); LYMPHOCYTES % 12.6 % (18.0-39.1); MEAN CORPUSCULAR HEMOGLOBIN 30.3 pg (28-32); MEAN CORPUSCULAR HGB CONC 30.4 g/dL (31-35); MEAN CORPUSCULAR VOLUME 99.7 fL (81-99); MONOCYTES # (AUTO) 0.8 (0.2-0.8); MONOCYTES % 13.1 % (4.4-11.3); NEUTROPHILS % 68.6 % (38.7-80.0); PLATELET COUNT 351 x10e3/uL (140-360); RED BLOOD COUNT 3.96 x10e6/uL (4.3-5.7); RED CELL DISTRIBUTION WIDTH 14.2 % (11.7-14.4)
[2021-06-17 20:37] LABS: ALBUMIN 2.7 g/dL (3.5-5.0); ALBUMIN/GLOBULIN RATIO 0.7 (0.8-2.0); ANION GAP 16.6 mmol/L (8-16); CALCIUM 9.2 mg/dL (8.4-10.2); CREATININE, SERUM 1.04 mg/dL (0.72-1.25); POTASSIUM 4.6 mmol/L (3.5-5.1)
[2021-06-17 20:45] LABS: CREATINE KINASE MB 1.7 ng/mL (0-5.0)
[2021-06-17] MEDS ORDERED: SODIUM CHLORIDE FLUSH 10 ML SYR INJ PRN (21:00)
[2021-06-17] MEDS ORDERED: IOPAMIDOL 370 MG/ML 100 ML INFUS..BTL INJ ONE (21:03)
[2021-06-18] VITALS (8 sets, daily range): BP systolic 106–126; BP diastolic 66–84
[2021-06-18] MEDS ORDERED: POTASSIUM CHLORIDE 20 MEQ TAB CR PO STA (00:37)
[2021-06-18] MEDS ORDERED: BENZONATATE 100 MG CAP PO PRN (00:45)
[2021-06-18] MEDS ORDERED: HYDRALAZINE HCL 20 MG/ML VIAL IV PRN ×2 (00:45)
[2021-06-18] MEDS ORDERED: DOCUSATE SODIUM 100 MG CAP PO PRN ×2 (00:45)
[2021-06-18] MEDS ORDERED: ALBUTEROL/IPRATROPIUM 3 ML NEB NEB PRN ×2 (00:45)
[2021-06-18] MEDS ORDERED: SIMETHICONE 80 MG CHEW PO PRN (00:45)
[2021-06-18] MEDS ORDERED: POTASSIUM CHLORIDE 20 MEQ TAB CR PO PRN (00:45)
[2021-06-18] MEDS ORDERED: LIDOCAINE 4% PATCH TP PRN ×2 (00:45)
[2021-06-18] MEDS ORDERED: ACETAMINOPHEN 325 MG TAB PO PRN (00:45)
[2021-06-18] MEDS ORDERED: ONDANSETRON HCL INJ 2MG/ML 2ML 2 MG/ML VIAL IV PRN (00:45)
[2021-06-18] MEDS ORDERED: DEXTROSE 50% SYRINGE 50 ML IV PRN ×2 (00:45)
[2021-06-18] MEDS ORDERED: DIPHENHYDRAMINE HCL 25 MG CAP PO PRN ×2 (00:45)
[2021-06-18] MEDS ORDERED: VITAMIN B-121000 MCG PO (01:19)
[2021-06-18] MEDS ORDERED: LEVOTHYROXINE50 MCG PO (01:19)
[2021-06-18] MEDS ORDERED: PANTOPRAZOLE SO40 MG PO (01:19)
[2021-06-18] MEDS: METOPROLOL TARTRATE 25 MG TAB PO SCH (04:00)
[2021-06-18] MEDS ORDERED: METOPROLOL SUCCINATE 50 MG TAB XL PO ONE (05:00)
[2021-06-18] MEDS ORDERED: METOPROLOL TARTRATE INJ 1 MG/ML VIAL IV ONE (05:00)
[2021-06-18] MEDS ORDERED: SODIUM CHLORIDE 0.9% 1000ML 500 ML IV ONE (05:00)
[2021-06-18] MEDS ORDERED: DILTIAZEM HCL 5 MG/ML 5 ML VIAL IV ONE (05:30)
[2021-06-18 05:45] LABS: BASOPHILS % 0.9 % (0.0-1.0); EOSINOPHILS # (AUTO) 0.2 (0.0-0.4); EOSINOPHILS % 3.6 % (0.0-6.0); HEMATOCRIT 34.1 % (38.2-49.6); HEMOGLOBIN 10.4 g/dL (14.0-18.0); LYMPHOCYTES # (AUTO) 0.5 (1.0-3.2); LYMPHOCYTES % 11.1 % (18.0-39.1); MEAN CORPUSCULAR HEMOGLOBIN 30.3 pg (28-32); MEAN CORPUSCULAR HGB CONC 30.5 g/dL (31-35); MEAN CORPUSCULAR VOLUME 99.4 fL (81-99); MONOCYTES # (AUTO) 0.7 (0.2-0.8); MONOCYTES % 15.7 % (4.4-11.3); NEUTROPHILS # (AUTO) 3.1 (2.1-6.9); NEUTROPHILS % 65.5 % (38.7-80.0); PLATELET COUNT 308 x10e3/uL (140-360); RED BLOOD COUNT 3.43 x10e6/uL (4.3-5.7); RED CELL DISTRIBUTION WIDTH 14.3 % (11.7-14.4)
[2021-06-18 06:18] LABS: CREATINE KINASE MB 1.5 ng/mL (0-5.0)
[2021-06-18 06:35] LABS: ALBUMIN 2.3 g/dL (3.5-5.0); ALBUMIN/GLOBULIN RATIO 0.7 (0.8-2.0); ANION GAP 12.9 mmol/L (8-16); CALCIUM 8.3 mg/dL (8.4-10.2); CREATININE, SERUM 1.02 mg/dL (0.72-1.25); POTASSIUM 4.9 mmol/L (3.5-5.1)
[2021-06-18 06:40] LABS: CHOL/HDL RATIO 6.2 (3.9-4.7); MAGNESIUM 1.7 MG/DL (1.3-2.1)
[2021-06-18] MEDS: TIOTROPIUM 18 MCG INH POWDER INH SCH (06:52)
[2021-06-18 07:00] LABS: THYROID STIMULATING HORMONE 1.613 uIU/mL (0.350-4.940)
[2021-06-18] MEDS ORDERED: PANTOPRAZOLE SOD 40 MG TABEC PO SCH (07:30)
[2021-06-18] MEDS ORDERED: METOPROLOL SUCCINATE 50 MG TAB XL PO SCH (09:00)
[2021-06-18] MEDS ORDERED: BUDESONIDE/FORMOTEROL 160/4.5MCG INHALER INH SCH (09:00)
[2021-06-18] MEDS ORDERED: CLOPIDOGREL BISULFATE 75 MG TAB PO SCH (09:00)
[2021-06-18] MEDS: AMIODARONE HCL 200 MG TAB PO SCH ×2 (09:11→16:28)
[2021-06-18] MEDS: APIXABAN 5 MG TABLET PO SCH ×2 (09:11→16:28)
[2021-06-18] MEDS: PANTOPRAZOLE SOD 40 MG TABEC PO SCH (09:11)
[2021-06-18] MEDS: DIGOXIN 0.125 MG TAB PO SCH (09:11)
[2021-06-18] MEDS: METHYLPREDNISOLONE SOD SUCC 40 MG/ML VIAL 1ML IV SCH ×2 (13:08→21:13)
[2021-06-18] MEDS: LEVALBUTEROL HCL SOLN NEBU 0.63 MG/3 ML NEB INH SCH ×2 (13:30→19:55)
[2021-06-18] MEDS: BUDESONIDE/FORMOTEROL 160/4.5MCG INHALER INH SCH (19:55)
[2021-06-18] MEDS ORDERED: ZOLPIDEM TARTRATE 5 MG TAB PO PRN (21:00)
[2021-06-18] MEDS ORDERED: ATORVASTATIN 20 MG TAB PO SCH (21:00)
[2021-06-18] MEDS: ATORVASTATIN 20 MG TAB PO SCH (21:13)
[2021-06-19] VITALS (7 sets, daily range): BP systolic 103–124; BP diastolic 49–98
[2021-06-19] MEDS: LEVALBUTEROL HCL SOLN NEBU 0.63 MG/3 ML NEB INH SCH ×4 (01:40→20:25)
[2021-06-19] MEDS: LEVOTHYROXINE SODIUM 50 MCG TAB PO SCH (04:58)
[2021-06-19 05:24] LABS: BASOPHILS % 0.3 % (0.0-1.0); HEMATOCRIT 35.1 % (38.2-49.6); HEMOGLOBIN 10.8 g/dL (14.0-18.0); LYMPHOCYTES # (AUTO) 0.2 (1.0-3.2); LYMPHOCYTES % 6.5 % (18.0-39.1); MEAN CORPUSCULAR HEMOGLOBIN 30.3 pg (28-32); MEAN CORPUSCULAR HGB CONC 30.8 g/dL (31-35); MEAN CORPUSCULAR VOLUME 98.6 fL (81-99); MONOCYTES # (AUTO) 0.1 (0.2-0.8); MONOCYTES % 3.4 % (4.4-11.3); NEUTROPHILS % 85.5 % (38.7-80.0); PLATELET COUNT 348 x10e3/uL (140-360); RED BLOOD COUNT 3.56 x10e6/uL (4.3-5.7); RED CELL DISTRIBUTION WIDTH 14.1 % (11.7-14.4)
[2021-06-19 05:52] LABS: ANION GAP 13.1 mmol/L (8-16); CALCIUM 8.5 mg/dL (8.4-10.2); CREATININE, SERUM 0.9 mg/dL (0.72-1.25); MAGNESIUM 1.9 MG/DL (1.3-2.1); PHOSPHORUS 2.5 MG/DL (2.3-4.7); POTASSIUM 5.1 mmol/L (3.5-5.1)
[2021-06-19 06:13] LABS: THYROID STIMULATING HORMONE 0.445 uIU/mL (0.350-4.940)
[2021-06-19] MEDS: BUDESONIDE/FORMOTEROL 160/4.5MCG INHALER INH SCH ×2 (07:00→20:25)
[2021-06-19] MEDS: TIOTROPIUM 18 MCG INH POWDER INH SCH (07:03)
[2021-06-19] MEDS: AMIODARONE HCL 200 MG TAB PO SCH (08:09)
[2021-06-19] MEDS ORDERED: ONDANSETRON HCL 4 MG ORAL DISINTEGRATING TAB PO PRN (08:15)
[2021-06-19] MEDS: METHYLPREDNISOLONE SOD SUCC 40 MG/ML VIAL 1ML IV SCH (08:18)
[2021-06-19] MEDS: PANTOPRAZOLE SOD 40 MG TABEC PO SCH (08:18)
[2021-06-19] MEDS: METOPROLOL TARTRATE 25 MG TAB PO SCH (08:18)
[2021-06-19] MEDS: APIXABAN 5 MG TABLET PO SCH ×2 (08:18→16:31)
[2021-06-19] MEDS: DIGOXIN 0.125 MG TAB PO SCH (08:18)
[2021-06-19] MEDS ORDERED: AMIODARONE HCL 150 MG/100 ML BAG IV ONE (08:30)
[2021-06-19] MEDS ORDERED: AMIODARONE 900MG 500 ML IV SCH (08:45)
[2021-06-19] MEDS: ATORVASTATIN 20 MG TAB PO SCH (22:00)
[2021-06-20] VITALS (9 sets, daily range): BP systolic 110–131; BP diastolic 70–87
[2021-06-20] MEDS: LEVALBUTEROL HCL SOLN NEBU 0.63 MG/3 ML NEB INH SCH ×4 (02:00→19:39)
[2021-06-20] MEDS: LEVOTHYROXINE SODIUM 50 MCG TAB PO SCH (06:03)
[2021-06-20 06:14] LABS: BASOPHILS % 0.3 % (0.0-1.0); HEMATOCRIT 33.6 % (38.2-49.6); HEMOGLOBIN 10.4 g/dL (14.0-18.0); LYMPHOCYTES # (AUTO) 0.3 (1.0-3.2); LYMPHOCYTES % 3.1 % (18.0-39.1); MEAN CORPUSCULAR HEMOGLOBIN 30.7 pg (28-32); MEAN CORPUSCULAR VOLUME 99.1 fL (81-99); MONOCYTES # (AUTO) 0.7 (0.2-0.8); NEUTROPHILS # (AUTO) 8.7 (2.1-6.9); NEUTROPHILS % 88.2 % (38.7-80.0); PLATELET COUNT 352 x10e3/uL (140-360); RED BLOOD COUNT 3.39 x10e6/uL (4.3-5.7); RED CELL DISTRIBUTION WIDTH 14.4 % (11.7-14.4)
[2021-06-20 06:44] LABS: ALBUMIN 2.6 g/dL (3.5-5.0); ALBUMIN/GLOBULIN RATIO 0.9 (0.8-2.0); ANION GAP 13.1 mmol/L (8-16); CALCIUM 8.6 mg/dL (8.4-10.2); CREATININE, SERUM 1.27 mg/dL (0.72-1.25); POTASSIUM 5.1 mmol/L (3.5-5.1)
[2021-06-20] MEDS: BUDESONIDE/FORMOTEROL 160/4.5MCG INHALER INH SCH ×2 (07:45→19:39)
[2021-06-20] MEDS: TIOTROPIUM 18 MCG INH POWDER INH SCH (07:45)
[2021-06-20] MEDS ORDERED: METHYLPREDNISOLONE SOD SUCC 40 MG/ML VIAL 1ML IV SCH (09:00)
[2021-06-20] MEDS: APIXABAN 5 MG TABLET PO SCH ×2 (09:04→17:15)
[2021-06-20] MEDS: PANTOPRAZOLE SOD 40 MG TABEC PO SCH (09:04)
[2021-06-20] MEDS: METOPROLOL TARTRATE 25 MG TAB PO SCH (09:05)
[2021-06-20] MEDS ORDERED: DIGOXIN 0.125 MG TAB PO SCH (10:00)
[2021-06-20] MEDS ORDERED: METOPROLOL TARTRATE INJ 1 MG/ML VIAL IV ONE (10:00)
[2021-06-20] MEDS ORDERED: AMIODARONE 900MG 500 ML IV SCH (10:30)
[2021-06-20] MEDS: ATORVASTATIN 20 MG TAB PO SCH (20:40)
[2021-06-21] VITALS: BP 117/81
[2021-06-21] MEDS: LEVALBUTEROL HCL SOLN NEBU 0.63 MG/3 ML NEB INH SCH (00:04)
[2021-06-21 00:43] VITALS: BP 117/81
[2021-06-21 03:00] VITALS: BP 125/82
== END 2021-06-21 03:10 | disposition short-term general hospital (02) | DRG 308 ==
LOC: ER 19:49 → ERHOLD 21:44 → MED/SURG 23:54
PROVIDERS: ADMIT Internal Medicine; ATTEND Internal Medicine
DX: I48.19 Other persistent atrial fibrillation (principal); J96.21 Acute and chronic respiratory failure with hypoxia; J43.9 Emphysema, unspecified; Z79.01 Long term (current) use of anticoagulants; K27.9 Peptic ulcer, site unspecified, unspecified as acute or chronic, without hemorrhage or perforation; I25.10 Atherosclerotic heart disease of native coronary artery without angina pectoris; Z95.5 Presence of coronary angioplasty implant and graft; K74.60 Unspecified cirrhosis of liver; R10.13 Epigastric pain; D63.8 Anemia in other chronic diseases classified elsewhere; G89.29 Other chronic pain
CPT/HCPCS: 36415; 71045; 71260; 76700; 80048; 80053; 80061; 82550; 82553; 83036; 83735; 83880; 84100; 84443; 84484; 85025; 85379; 93005; 93306; 94640; 94799; 99284; J1160; J2920; J7030; Q9967; U0002